=== PATIENT | female | born 1940 | race Caucasian/White ===

== ENCOUNTER 2017-03-31 10:34 | Emergency (ER) | payer MEDICARE, BC ==
[2017-03-31 11:37] VITALS: BP 134/59
--- NOTE | 2017-04-03 10:36 | ER ---
DATE SEEN: 03/31/2017 CHIEF COMPLAINT: Redness, left lower extremity. HISTORY OF PRESENT ILLNESS: This is a 76-year-old woman, who comes in with history of redness in left lower extremity. She was seen at 1050 hours, had onset of this redness noted today. She denies pain in legs. PAST MEDICAL HISTORY: Significant for, 1. Atrial fibrillation. 2. Anticoagulation with warfarin. 3. Spastic bladder. 4. Hypertension. 5. Dyslipidemia. 6. GERD. The patient notes that 2 weeks ago her scratched her lower extremity with his toenail and thought perhaps she might have infection in the left lower leg. This resulted in superficial laceration and she has surrounding redness, so she became concerned about potential infection. ALLERGIES: Tramadol. REVIEW OF SYSTEMS: HEENT: Has glaucoma, uses latanoprost. Otherwise negative. No sinusitis. No sore throat. CARDIORESPIRATORY: Denies chest pain, or irregular heartbeat present, but she has had irregular heartbeat in the past, treated with warfarin, had ablation, and pacemaker in place. Her cardiovascular status is stable. She is using warfarin as she has pacemaker in place. GASTROINTESTINAL: Denies abdominal pain. She has GERD. Denies blood in stool, black tarry stool, diarrhea, or constipation. GENITOURINARY: Denies frequency, urgency, or dysuria. MUSCULOSKELETAL: Denies arthritis or generalized muscle aches. NEUROLOGIC: Negative. MEDICATIONS: 1. Carvedilol 6.25 mg daily. 2. Flonase 1 spray daily. 3. Losartan 100 mg daily. 4. Latanoprost 1 drop daily each eye. 5. Atarax 10 mg daily. 6. Warfarin 2 mg daily. 7. Potassium chloride 10 mEq daily. 8. Oxybutynin 5 mg daily. 9. Atorvastatin 10 mg daily. 10.Amlodipine 5 mg daily. 11.Bumetanide 2 mg daily. 12.Protonix 40 mg daily. PHYSICAL EXAMINATION: VITAL SIGNS: Blood pressure 134/59, heart rate regular and 87, respirations 18, oxygen saturation 95% on room air, and temperature 36.7 degrees centigrade. BMI 13.7 kilos per meter squared. GENERAL: Alert woman, who is very pleasant demeanor. Looks younger than her age. HEENT: PERRLA intact. Pharynx without abnormality. NECK: No bruits. No masses in the neck. No thyromegaly. LUNGS: Clear to auscultation without rales, rhonchi, or wheezes. HEART: S1, S2. No murmur. No irregularity of rhythm. Pacemaker evident. ABDOMEN: Soft. No guarding. No abdominal discomfort. EXTREMITIES: Without edema. Left lower extremity, 15 cm x 8 cm area of erythema without induration left lateral gastroc region. No linear angiitis. No swelling of feet. No pedal edema. Dorsalis pedis intact. Capillary fill is normal. Deep tendon reflexes normal in upper and lower extremities. Cranial nerves 2 through 12 intact. Oriented x3. Gait appropriate without pain or limp. Romberg negative. ASSESSMENT: Probable cellulitis left lower extremity status post traumatic laceration caused 's toenail 2 weeks ago (while in bed). Superficial laceration healing. Surrounding 15-cm erythema. Mild increased warmth, induration, and tenderness. PLAN: Treat with antibiotics Keflex 500 mg t.i.d. Follow up with doctor in 10 to 14 days, earlier if worse. Use bacitracin to wound. DIAGNOSES: 1. Cellulitis, left lower extremity. 2. Diabetes. 3. Hypertension. 4. Pacemaker secondary to atrial fibrillation ablation. 5. Anticoagulation secondary to pacemaker placement. 6. Gastroesophageal reflux disease. 7. Bladder spasms. 8. Dyslipidemia. The patient was seen at 1050 hours. /[id number] MICKI/HOLLEY BENEDICT
== END 2017-03-31 11:35 | disposition home or self-care (01) ==
LOC: FB.ED 10:34
DX: L03.116 Cellulitis of left lower limb (principal); E11.9 Type 2 diabetes mellitus without complications; K21.9 Gastro-esophageal reflux disease without esophagitis; I10 Essential (primary) hypertension; E78.5 Hyperlipidemia, unspecified; I48.91 Unspecified atrial fibrillation; Z79.899 Other long term (current) drug therapy; Z79.01 Long term (current) use of anticoagulants
CPT/HCPCS: 99283

== ENCOUNTER 2021-02-16 19:28 | Emergency (ER) | payer MEDICARE, BC ==
[2021-02-16 20:07] VITALS: BP 132/56; PULSE 73
[2021-02-16] MEDS ORDERED: Acetaminophen/HYDROcodone 325-5 MG Tab PO ONE (20:09)
--- NOTE | 2021-02-16 20:11 | EDM.PDOC ---
ED HPI GENERAL MEDICAL PROBLEM - General Chief Complaint: Abdominal Pain Stated Complaint: PAIN Time Seen by Provider: 02/16/21 19:30 Source of Information: Reports: Patient, Family History Limitations: Reports: No Limitations - History of Present Illness INITIAL COMMENTS - FREE TEXT/NARRATIVE: Patient presented to the Ed because of a tender lump over the LLQ just above the groin. She was diagnosed with diverticulitis 1 week ago and took cipro and flagyl for 1 week. She reached at a cupboard at 5 pm tonight and felt the pain. she had a CT abd/pelvis done yesterday but she didn't get any call from the clinic. Left lower abd Pain Score (Numeric/FACES): 7 - Related Data Allergies Allergy/AdvReac Type Severity Reaction Status Date / Time tramadol Allergy Confusion Verified 02/15/21 09:51 Home Meds: Home Meds Bumetanide 2 mg PO DAILY 03/31/17 [History] Fluticasone Propionate [Flonase] 1 spray NS DAILY 03/31/17 [History] Latanoprost 1 drop EYEBOTH DAILY 03/31/17 [History] Losartan [Cozaar] 100 mg PO DAILY 03/31/17 [History] Oxybutynin [Oxybutynin ER] 5 mg PO DAILY 03/31/17 [History] Pantoprazole Sodium [Protonix] 40 mg PO 03/31/17 [History] Potassium Chloride 10 meq PO DAILY 03/31/17 [History] Warfarin Sodium [Jantoven] 2 mg PO DAILY 03/31/17 [History] amLODIPine [Norvasc] 5 mg PO DAILY 03/31/17 [History] atorvaSTATin [Lipitor] 10 mg PO BEDTIME 03/31/17 [History] carvediloL [Carvedilol] 6.25 mg PO DAILY 03/31/17 [History] cephALEXin [Keflex] 500 mg PO TID #30 capsule 03/31/17 [Rx] hydrOXYzine HCL [Atarax] 10 mg PO DAILY 03/31/17 [History] Acetaminophen/HYDROcodone [[place] 325-5 MG] 1 tab PO Q4H PRN #10 tab 02/16/21 [Rx] Past Medical History Cardiovascular History: Reports: High Cholesterol, Hypertension 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 History: Reports: Neurogenic Bladder Other 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 History: on oxybutinin 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: - Past Surgical History Cardiovascular Surgical History: Reports: Pacer Social & Family History - Tobacco Use Tobacco Use Status *Q: Never Tobacco User - Caffeine Use Caffeine Use: Reports: None ED ROS GENERAL - Review of Systems Review Of Systems: See Below Constitutional: Reports: No Symptoms HEENT: Reports: No Symptoms Respiratory: Reports: No Symptoms Cardiovascular: Reports: No Symptoms Endocrine: Reports: No Symptoms GI/Abdominal: Reports: No Symptoms : Reports: No Symptoms Musculoskeletal: Reports: No Symptoms Skin: Reports: No Symptoms Neurological: Reports: No Symptoms Psychiatric: Reports: No Symptoms Hematologic/Lymphatic: Reports: No Symptoms ED EXAM, GI/ABD - Physical Exam Exam: See Below Exam Limited By: No Limitations General Appearance: Alert, No Apparent Distress Ears: Normal External Exam, Normal Canal Nose: Normal Inspection, Normal Mucosa, No Blood Throat/Mouth: Normal Inspection, Normal Lips, Normal Teeth Head: Atraumatic, Normocephalic Neck: Normal Inspection, Supple, Non-Tender, Full Range of Motion Respiratory/Chest: No Respiratory Distress, Lungs Clear, Normal Breath Sounds, No Accessory Muscle Use, Chest Non-Tender Cardiovascular: Normal Peripheral Pulses, Regular Rate, Rhythm, No Edema, No Gallop GI/Abdominal Exam: Normal Bowel Sounds, Soft, No Organomegaly, No Distention, No Abnormal Bruit, Other (quarter size lump on LLQ) Back Exam: Normal Inspection, Full Range of Motion Extremities: Normal Inspection, Normal Range of Motion, Non-Tender Neurological: Alert, Oriented, CN II-XII Intact Course - Vital Signs Text/Narrative:: CT result was discussed with patient and her son. Last Recorded V/S: Last Vital Signs Temp 36.6 C 02/16/21 19:28 Pulse 73 02/16/21 19:28 Resp 17 02/16/21 19:28 BP 132/56 L 02/16/21 19:28 Pulse Ox 97 02/16/21 19:28 Departure - Departure Time of Disposition: 20:20 Disposition: Home, Self-Care 01 Condition: Good Clinical Impression: Abdominal hernia - Discharge Information Prescriptions: Acetaminophen/HYDROcodone [[place] 325-5 MG] 1 tab PO Q4H PRN #10 tab PRN Reason: Pain Instructions: Hernia, Adult, [id number] Forms: ED Department Discharge Additional Instructions: Please read discharge instructions on abdominal hernia Put an abdominal binder as directed Take norco/hydrocodone. 1 tablet every 4-6 hours as needed for pain Follow up as needed Sepsis Event Note (ED) - Evaluation Sepsis Screening Result: No Definite Risk
== END 2021-02-16 20:20 | disposition home or self-care (01) ==
LOC: FB.ED 19:28
DX: K46.9 Unspecified abdominal hernia without obstruction or gangrene (principal); E78.00 Pure hypercholesterolemia, unspecified; I10 Essential (primary) hypertension; Z79.01 Long term (current) use of anticoagulants; Z79.899 Other long term (current) drug therapy; Z88.5 Allergy status to narcotic agent
CPT/HCPCS: 99283; A9270

== ENCOUNTER 2021-03-07 06:50 | Day surgery (SDC) | payer MEDICARE, BC ==
[~2021-03-07 06:50] MED LIST: Lactated Ringers 1,000 ML IV SCH; Sodium Chloride 0.9% 10 ML Syringe FLUSH PRN
[2021-03-07] MEDS ORDERED: Propofol 200 MG/20 ML SDV IV ONE (06:51)
[2021-03-07] MEDS ORDERED: Lidocaine 1% PF 2 ML SDV INJECT ONE (06:51)
--- NOTE | 2021-03-07 08:00 | PCM.HPR ---
H & P Addendum review - H & P Addendum Review Date of Original H & P: 02/13/21 Date Reviewed: 03/07/21 Time Reviewed: 07:45 Patient was Examined: No Changes (LLQ pain has resolved)
--- NOTE | 2021-03-07 08:33 | PCM.OPNOTE ---
- General Post-Op/Procedure Note Date of Surgery/Procedure: 03/07/21 Operative Procedure(s): Colonoscopy with polypectomy Findings: 2 polyps Melanosis Coli Pre Op Diagnosis: Hx Colon Polyps Post-Op Diagnosis: Same Anesthesia Technique: MAC Primary Surgeon: Ruben Napoles Pathology: polyps Complications: None Condition: Good
--- NOTE | 2021-03-07 11:17 | OR ---
DATE OF OPERATION: 03/07/2021 SURGEON: Ruben Napoles MD PREOPERATIVE DIAGNOSES: 1. History of colon polyps. 2. Weight loss. 3. Recent abdominal pain, resolved. POSTOPERATIVE DIAGNOSES: 1. Colon polyps. 2. Melanosis coli. PROCEDURE: Colonoscopy with polypectomy x2. ANESTHESIA: IV sedation. DESCRIPTION OF PROCEDURE: The patient was brought to the procedure room, where she was placed on her left side and IV sedation administered. Digital rectal exam was performed, which was normal. Colonoscope was inserted and advanced to the level of the cecum with some difficulty getting through a tortuous colon. Cecum was identified by visualizing the appendiceal lumen and ileocecal valve. 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 Upon withdrawing the scope, I did find 2 polyps in the transverse colon. The largest one measures 10 mm in diameter and was removed with the cautery snare, broad-based stalk. The smaller 6 mm one was pedunculated and also removed with a snare. These were retrieved and sent as 1 specimen. The descending and sigmoid colon were normal. I did not see any diverticula, although some could have been behind folds. The rectum was normal and retroflexion was normal. Air was removed and the scope withdrawn. The patient tolerated the procedure well and returned to recovery in stable condition. The patient will follow up with Dr. Luevano in the near future for ongoing evaluation. She could consider another colonoscopy in 5 years if her health allows at that time. /[id number] VIKI/HOLELY
[2021-03-07 16:16] VITALS: BP 162/87; PULSE 72
== END 2021-03-07 09:35 | disposition home or self-care (01) ==
LOC: FB.SDS 06:50
PROVIDERS: ATTEND Surgery
DX: D12.3 Benign neoplasm of transverse colon (principal); K31.89 Other diseases of stomach and duodenum; K63.89 Other specified diseases of intestine; Z88.6 Allergy status to analgesic agent; Z86.010 Personal history of colon polyps
CPT/HCPCS: 00811; 45385; 88305; J2704; J7120

== ENCOUNTER 2021-04-13 04:41 | Emergency (ER) | payer MEDICARE, BC ==
[2021-04-13] MEDS ORDERED: Atropine/Diphenoxylate 0.025-2.5 MG Tab PO ONE (04:52)
--- NOTE | 2021-04-13 04:56 | EDM.PDOC ---
ED HPI GENERAL MEDICAL PROBLEM - General Stated Complaint: DIARRHEA Time Seen by Provider: 04/13/21 04:54 Source of Information: Reports: Patient History Limitations: Reports: No Limitations - History of Present Illness INITIAL COMMENTS - FREE TEXT/NARRATIVE: Marta complains of diarrhea x 4days,constant loose,green stools. No pain,fever or chills,and denies any vomiting. No recent abx use.Negative C scope in the last year or so.Earnest tried OTC Imodium with no relief. She comes in by ambulance. - Related Data Allergies Allergy/AdvReac Type Severity Reaction Status Date / Time tramadol Allergy Confusion Verified 02/15/21 09:51 Home Meds: Home Meds Bumetanide 2 mg PO DAILY 03/31/17 [History] Fluticasone Propionate [Flonase] 2 spray NS BEDTIME 03/31/17 [History] Latanoprost 1 drop EYEBOTH BEDTIME 03/31/17 [History] Losartan [Cozaar] 25 mg PO DAILY@1200 03/31/17 [History] Oxybutynin [Oxybutynin ER] 10 mg PO BEDTIME 03/31/17 [History] Potassium Chloride 20 meq PO DAILY 03/31/17 [History] atorvaSTATin [Lipitor] 10 mg PO BEDTIME 03/31/17 [History] carvediloL [Carvedilol] 6.25 mg PO BIDMEALS 03/31/17 [History] Acetaminophen/Codeine [Tylenol with Codeine No.3 300MG/30MG] 1 tab PO BEDTIME PRN 03/06/21 [History] Calcium Carbonate/Vitamin D3 [Calcium Carbonate/Vitamin D 600 MG-200 Unit] 2 tab PO DAILY 03/06/21 [History] Docusate Sodium [Colace] 100 mg PO DAILY 03/06/21 [History] Famotidine [Pepcid] 20 mg PO BEDTIME 03/06/21 [History] Multivitamin with Minerals [Multiple Vitamin] 1 tab PO DAILY 03/06/21 [History] allopurinoL [Zyloprim] 100 mg PO DAILY 03/06/21 [History] polyethylene glycoL 3350 [MiraLAX] 17 gm PO DAILY PRN 03/06/21 [History] Warfarin [Coumadin] 2 mg PO MOFR 04/13/21 [History] Warfarin [Coumadin] 4 mg PO SUTUWETHSA 04/13/21 [History] metroNIDAZOLE [Flagyl] 500 mg PO Q8H 10 Days #30 tab 04/13/21 [Rx] Past Medical History HEENT History: Reports: Cataract, Sinusitis Cardiovascular History: Reports: Afib, Heart Failure, High Cholesterol, Hypertension, Pacemaker Respiratory History: Reports: Other (See Below) Other Respiratory History: CHRONIC COUGH Gastrointestinal History: Reports: Chronic Constipation, GERD 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 History: Reports: Neurogenic Bladder, Urinary Incontinence Other 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 History: on oxybutinin 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 ED EXAM, GI/ABD - Physical Exam Exam: See Below Exam Limited By: No Limitations General Appearance: Alert, WD/WN Eyes: Bilateral: Normal Appearance, EOMI Throat/Mouth: Normal Inspection, Normal Lips, Normal Teeth, Normal Gums, Normal Oropharynx, Normal Voice, No Airway Compromise Head: Atraumatic, Normocephalic Respiratory/Chest: No Respiratory Distress, Lungs Clear, Normal Breath Sounds, No Accessory Muscle Use, Chest Non-Tender Cardiovascular: Normal Peripheral Pulses, Regular Rate, Rhythm, No Edema, No Gallop, No JVD, No Murmur, No Rub GI/Abdominal Exam: Normal Bowel Sounds, Soft, Non-Tender, No Organomegaly, No Distention, No Abnormal Bruit, No Mass, Pelvis Stable Course - Vital Signs Last Recorded V/S: Last Vital Signs Temp 98.4 F 04/13/21 04:50 Pulse 70 04/13/21 07:42 Resp 18 04/13/21 07:42 BP 107/54 L 04/13/21 07:42 Pulse Ox 96 04/13/21 07:42 - Orders/Labs/Meds Labs: Laboratory Tests 04/13/21 04/13/21 04/13/21 Range/Units 05:00 05:00 05:00 WBC 8.3 (3.0-10.3) x10-3/uL RBC 3.43 L (3.60-5.20) x10(6)uL Hgb 10.9 L (11.4-15.5) g/dL Hct 32.9 L (34.2-48.2) % MCV 95.7 (76.7-100.5) fL MCH 31.6 (23.9-33.9) pg MCHC 33.1 (31.9-34.8) g/dL RDW 13.5 (12.3-16.5) % Plt Count 142 L (151-488) x10(3)uL MPV 7.5 (7.1-12.4) fL Neut % (Auto) 74.5 (30.8-76.2) % Lymph % (Auto) 11.0 L (18.4-52.1) % Jewell % (Auto) 13.1 (4.4-15.7) % Eos % (Auto) 1.2 (0.6-8.1) % Baso % (Auto) 0.2 (0.2-1.5) % Neut # (Auto) 6.2 (1.5-6.3) x10-3/uL Lymph # (Auto) 0.9 L (1.0-4.4) x10-3/uL Jewell # (Auto) 1.1 H (0.3-1.0) x10-3/uL Eos # (Auto) 0.1 (0.0-0.8) x10-3/uL Baso # (Auto) 0.0 (0.0-0.1) x10-3/uL Sodium 136 (135-145) mmol/L Potassium 3.9 (3.5-5.3) mmol/L Chloride 98 L (100-110) mmol/L Carbon Dioxide 29 (21-32) mmol/L BUN 39 H (7-18) mg/dL Creatinine 1.2 H (0.55-1.02) mg/dL Est Cr Clr Drug Dosing TNP Estimated GFR (MDRD) 43 L (>60) BUN/Creatinine Ratio 32.5 H (9-20) Glucose 113 (80-116) mg/dL Calcium 8.8 (8.6-10.2) mg/dL C-Reactive Protein 13.3 H* (0.5-0.9) mg/dL Meds: Medications Discontinued Medications Generic Name Dose Route Start Last Admin Trade Name [place] PRN Reason Stop Dose Admin Diphenoxylate HCl/Atropine 2 tab 04/13/21 04:52 04/13/21 06:14 Atropine/Diphenoxylate 0.025-2.5 Mg Tab PO 04/13/21 04:53 2 tab ONETIME ONE Administration Sodium Chloride 1,000 mls @ 999 mls/hr 04/13/21 05:00 04/13/21 06:45 Normal Saline IV 999 mls/hr ASDIRECTED RANDELL Administration Sodium Chloride 1,000 mls @ 150 mls/hr 04/13/21 06:30 Normal Saline IV ASDIRECTED RANDELL Departure - Departure Time of Disposition: 19:11 Disposition: Home, Self-Care 01 Condition: Good Clinical Impression: C. difficile colitis - Discharge Information Prescriptions: metroNIDAZOLE [Flagyl] 500 mg PO Q8H 10 Days #30 tab Instructions: Clostridioides Difficile Infection Referrals: PCP,None [Primary Care Provider] - Forms: ED Department Discharge - Problem List & Annotations (1) C. difficile colitis SNOMED Code(s): 549688975 Code(s): A04.72 - ENTEROCOLITIS D/T CLOSTRIDIUM DIFFICILE, NOT SPCF RECUR Status: Acute - Problem List Review Problem List Initiated/Reviewed/Updated: Yes - Assessment/Plan Plan: 2 L NS. Flagyl.
[2021-04-13] MEDS: Sodium Chloride 0.9% 1,000 ML IV SCH ×2 (05:10→06:45)
[2021-04-13] MEDS ORDERED: Sodium Chloride 0.9% 1,000 ML IV SCH (06:30)
[2021-04-13 08:22] VITALS: BP 107/54; PULSE 70
== END 2021-04-13 07:42 | disposition home or self-care (01) ==
LOC: FB.ED 04:41
DX: A04.72 Enterocolitis due to Clostridium difficile, not specified as recurrent (principal); I11.0 Hypertensive heart disease with heart failure; I50.9 Heart failure, unspecified; I48.91 Unspecified atrial fibrillation; Z79.01 Long term (current) use of anticoagulants; E78.00 Pure hypercholesterolemia, unspecified; K21.9 Gastro-esophageal reflux disease without esophagitis; Z79.899 Other long term (current) drug therapy; Z88.5 Allergy status to narcotic agent
CPT/HCPCS: 36415; 80048; 85025; 86140; 87230; 99284; A9270-GY; J7030

== ENCOUNTER 2021-04-13 12:46 | Inpatient (IN) | payer MEDICARE, BC ==
[2021-04-13] MEDS ORDERED: Sodium Chloride 0.9% 10 ML Syringe FLUSH PRN (13:11)
--- NOTE | 2021-04-13 13:48 | EDM.PDOC ---
ED HPI GENERAL MEDICAL PROBLEM - General Stated Complaint: UNRESPONSIVE Time Seen by Provider: 04/13/21 13:00 Source of Information: Reports: Patient, Family History Limitations: Reports: No Limitations - History of Present Illness INITIAL COMMENTS - FREE TEXT/NARRATIVE: Patient is a 80 YO WF who presented to the ED because of altered LOC-she was unresponsive, disoriented, and confused hours after she was discharged from the ED this morning. She was seen in the ED because of 4 day history of diarrhea, diagnosed with gastroenteritis, C. dif colitis, dehydration and CANDY. She had 2 L of NS in the ED and was discharged to home with flagyl. She c/o chills but no fever, have been having dry cough. There is no urinary symptoms. - Related Data Allergies Allergy/AdvReac Type Severity Reaction Status Date / Time tramadol Allergy Confusion Verified 02/15/21 09:51 Home Meds: Home Meds Bumetanide 2 mg PO BID 03/31/17 [History] Fluticasone Propionate [Flonase] 2 spray NS DAILY 03/31/17 [History] Latanoprost 1 drop EYEBOTH DAILY 03/31/17 [History] Losartan [Cozaar] 25 mg PO DAILY PRN 03/31/17 [History] Oxybutynin [Oxybutynin ER] 10 mg PO DAILY 03/31/17 [History] Potassium Chloride 20 meq PO BID 03/31/17 [History] atorvaSTATin [Lipitor] 10 mg PO BEDTIME 03/31/17 [History] carvediloL [Carvedilol] 6.25 mg PO BIDMEALS 03/31/17 [History] Acetaminophen/Codeine [Tylenol with Codeine No.3 300MG/30MG] 1 tab PO BEDTIME 03/06/21 [History] Calcium Carbonate/Vitamin D3 [Calcium Carbonate/Vitamin D 600 MG-200 Unit] 2 tab PO DAILY 03/06/21 [History] Cholecalciferol (Vitamin D3) [Vitamin D3] 125 mcg PO DAILY 03/06/21 [History] Docusate Sodium [Colace] 100 mg PO DAILY 03/06/21 [History] Famotidine [Pepcid] 20 mg PO BEDTIME 03/06/21 [History] Fexofenadine [Patricia] 180 mg PO DAILY 03/06/21 [History] Multivitamin with Minerals [Multiple Vitamin] 1 tab PO DAILY 03/06/21 [History] allopurinoL [Zyloprim] 100 mg PO DAILY 03/06/21 [History] polyethylene glycoL 3350 [MiraLAX] 17 gm PO DAILY PRN 03/06/21 [History] metroNIDAZOLE [Flagyl] 500 mg PO Q8H 10 Days #30 tab 04/13/21 [Rx] Past Medical History HEENT History: Reports: Cataract, Sinusitis Cardiovascular History: Reports: Afib, Heart Failure, High Cholesterol, Hypertension, Pacemaker Respiratory History: Reports: Other (See Below) Other Respiratory History: CHRONIC COUGH Gastrointestinal History: Reports: Chronic Constipation, GERD 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 History: Reports: Neurogenic Bladder, Urinary Incontinence Other 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 History: on oxybutinin 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: Musculoskeletal History: Reports: Fracture, Gout Neurological History: Reports: TIA Hematologic History: Reports: Anticoagulation Therapy Dermatologic History: Reports: None - Infectious Disease History Infectious Disease History: Reports: C-Difficile - Past Surgical History HEENT Surgical History: Reports: Cataract Surgery Cardiovascular Surgical History: Reports: Pacer GI Surgical History: Reports: Colonoscopy Musculoskeletal Surgical History: Reports: ORIF Social & Family History - Caffeine Use Caffeine Use: Reports: None ED ROS GENERAL - Review of Systems Review Of Systems: See Below Constitutional: Reports: Chills HEENT: Reports: No Symptoms Respiratory: Reports: Cough Cardiovascular: Reports: No Symptoms Endocrine: Reports: No Symptoms GI/Abdominal: Reports: Diarrhea : Reports: No Symptoms Musculoskeletal: Reports: No Symptoms Skin: Reports: No Symptoms Neurological: Reports: Confusion Psychiatric: Reports: No Symptoms Hematologic/Lymphatic: Reports: No Symptoms ED EXAM, GENERAL - Physical Exam Exam: See Below Exam Limited By: Altered Mental Status General Appearance: Other (disoriented and confused) Eye Exam: Bilateral Eye: PERRL Ears: Normal External Exam, Normal Canal Nose: Normal Inspection, Normal Mucosa, No Blood Throat/Mouth: Normal Inspection, Normal Lips, Normal Teeth Head: Atraumatic, Normocephalic Neck: Normal Inspection, Supple, Non-Tender, Full Range of Motion Respiratory/Chest: No Respiratory Distress, Lungs Clear, Normal Breath Sounds, No Accessory Muscle Use, Chest Non-Tender Cardiovascular: Normal Peripheral Pulses, Regular Rate, Rhythm, No Edema, No Gallop, No JVD, No Murmur, No Rub GI/Abdominal: Non-Tender, Other (hyperactibe bowel sound) Back Exam: Normal Inspection, Full Range of Motion Extremities: Normal Inspection, Normal Range of Motion, Non-Tender Neurological: No Motor/Sensory Deficits, Disoriented, Other (confused) Psychiatric: Normal Affect Skin Exam: Warm, Dry Course - Vital Signs Text/Narrative:: Lab/CXR/Headt CT result was reviewed and discussed with patient and her stepson NS @ 125 ml/hr Flagyl 500 mg IV x1 Covid-negative Code Status: Full Code Last Recorded V/S: Last Vital Signs Temp 38.8 C H 04/13/21 12:47 Pulse 73 04/13/21 12:47 Resp 20 04/13/21 12:47 BP 115/68 04/13/21 12:47 Pulse Ox 93 L 04/13/21 12:47 - Orders/Labs/Meds Orders: Active Orders 24 hr Category Date Time Status Patient Status Manage Transfer [TRANSFER] Routine ADT 04/13/21 15:18 Ordered Chest 1V Frontal [CR] Stat Exams 04/13/21 13:11 Ordered UA W/MICROSCOPIC [URIN] Stat Lab 04/13/21 14:57 Received Sodium Chloride 0.9% [Normal Saline] 1,000 ml Med 04/13/21 13:15 Active IV ASDIRECTED Sodium Chloride 0.9% [Saline Flush] Med 04/13/21 13:11 Active 10 ml FLUSH ASDIRECTED PRN metroNIDAZOLE/Normal Saline [Flagyl in NS 500 MG/100 ML Med 04/13/21 15:02 Active ] 500 mg Premix Bag 1 bag IV ONETIME Saline Lock Insert [OM.PC] Routine Oth 04/13/21 13:11 Ordered Medication Orders Sodium Chloride (Normal Saline) 1,000 mls @ 125 mls/hr IV ASDIRECTED RANDELL Last Admin: 04/13/21 13:57 Dose: 125 mls/hr Documented by: CASS Metronidazole 500 mg/ Premix 100 mls @ 100 mls/hr IV ONETIME ONE Stop: 04/13/21 16:01 Sodium Chloride (Sodium Chloride 0.9% 10 Ml Syringe) 10 ml FLUSH ASDIRECTED PRN PRN Reason: Keep Vein Open Labs: Laboratory Tests 04/13/21 04/13/21 04/13/21 Range/Units 13:25 13:25 14:04 Sodium 138 (135-145) mmol/L Potassium 3.7 (3.5-5.3) mmol/L Chloride 102 (100-110) mmol/L Carbon Dioxide 27 (21-32) mmol/L BUN 33 H (7-18) mg/dL Creatinine 1.2 H (0.55-1.02) mg/dL Est Cr Clr Drug Dosing TNP Estimated GFR (MDRD) 43 L (>60) BUN/Creatinine Ratio 27.5 H (9-20) Glucose 116 (80-116) mg/dL Lactic Acid 0.8 (0.4-2.0) mmol/L Calcium 8.1 L (8.6-10.2) mg/dL Total Bilirubin 2.4 H (0.1-1.3) mg/dL AST 14 (5-25) IU/L ALT 14 (12-36) U/L Alkaline Phosphatase 36 L (56-112) IU/L Total Protein 5.6 L (6.0-8.0) g/dL Albumin 2.8 L (3.2-4.6) g/dL Globulin 2.8 g/dL Albumin/Globulin Ratio 1.0 SARS-CoV-2 RNA (YUNIOR) Negative (NEGATIVE) Meds: Medications Generic Name Dose Route Start Last Admin Trade Name Freq PRN Reason Stop Dose Admin Sodium Chloride 1,000 mls @ 125 mls/hr 04/13/21 13:15 04/13/21 13:57 Normal Saline IV 125 mls/hr ASDIRECTED RANDELL Administration Metronidazole 500 mg/ Premix 100 mls @ 100 mls/hr 04/13/21 15:02 IV 04/13/21 16:01 ONETIME ONE Sodium Chloride 10 ml 04/13/21 13:11 Sodium Chloride 0.9% 10 Ml Syringe FLUSH ASDIRECTED PRN Keep Vein Open Departure - Departure Time of Disposition: 15:00 Disposition: Admitted As Inpatient 67 Condition: Good Clinical Impression: Dehydration, CANDY (acute kidney injury), C. difficile colitis, Encephalopathy - Discharge Information Referrals: PCP,None [Primary Care Provider] - Sepsis Event Note (ED) - Focused Exam Vital Signs: Vital Signs Temp Pulse Resp BP Pulse Ox 04/13/21 12:47 38.8 C H 73 20 115/68 93 L - My Orders Last 24 Hours: My Active Orders 04/13/21 13:11 Chest 1V Frontal [CR] Stat Sodium Chloride 0.9% [Saline Flush] 10 ml FLUSH ASDIRECTED PRN Saline Lock Insert [OM.PC] Routine 04/13/21 13:15 Sodium Chloride 0.9% [Normal Saline] 1,000 ml IV ASDIRECTED 04/13/21 14:57 UA W/MICROSCOPIC [URIN] Stat 04/13/21 15:02 metroNIDAZOLE/Normal Saline [Flagyl in NS 500 MG/100 ML] 500 mg Premix Bag 1 bag IV ONETIME 04/13/21 15:18 Patient Status Manage Transfer [TRANSFER] Routine - Assessment/Plan Last 24 Hours: My Active Orders 04/13/21 13:11 Chest 1V Frontal [CR] Stat Sodium Chloride 0.9% [Saline Flush] 10 ml FLUSH ASDIRECTED PRN Saline Lock Insert [OM.PC] Routine 04/13/21 13:15 Sodium Chloride 0.9% [Normal Saline] 1,000 ml IV ASDIRECTED 04/13/21 14:57 UA W/MICROSCOPIC [URIN] Stat 04/13/21 15:02 metroNIDAZOLE/Normal Saline [Flagyl in NS 500 MG/100 ML] 500 mg Premix Bag 1 bag IV ONETIME 04/13/21 15:18 Patient Status Manage Transfer [TRANSFER] Routine
[2021-04-13] MEDS: Sodium Chloride 0.9% 1,000 ML IV SCH (13:57)
--- NOTE | 2021-04-13 14:29 | CT ---
INDICATION: Altered level of consciousness/confusion. CT HEAD WITHOUT CONTRAST: Spiral 3.75 mm axial sections were obtained through the brain without contrast 04/13/21 with axial, sagittal, and coronal reconstructions - no comparisons. Total exam DLP was 1219.22 milligray-cm. The left maxillary antrum is opacified as is a left frontal air cell. This could be on the basis of sinusitis but should be correlated clinically. The paranasal sinuses and mastoid air cells were otherwise well aerated. The orbits appear to be intact. No definite cranial abnormality was identified. There appears to be some calcification in the internal carotid arteries. There is some low-density abnormality in the white matter in the frontoparietal and parietal area which may be on the basis of mild microvascular disease. No bleeding site or hematoma was seen - no definite acute intracranial abnormality was seen. IMPRESSION: 1. Probable cerebrovascular disease with minimal microvascular disease type changes in the right frontoparietal and parietal area. 2. Opacified left frontal and left maxillary sinuses, etiology indeterminate - correlate clinically. Report was called to Dr. Ceron at 1405 hours 04/13/21. [facility]
[2021-04-13] MEDS ORDERED: metroNIDAZOLE/Normal Saline 500 MG in Premix Bag 1 BAG IV ONE (15:02)
[2021-04-13] MEDS ORDERED: Warfarin Sliding Scale PO SCH (17:15)
[2021-04-13] MEDS ORDERED: Acetaminophen/Codeine 300-30 MG Tab PO PRN (17:54)
[2021-04-13] MEDS ORDERED: Losartan 25 MG Tab PO PRN (17:54)
[2021-04-13] MEDS: Carvedilol 6.25 MG Tab PO SCH (18:24)
[2021-04-13] MEDS: Vancomycin 125 MG Cap PO SCH ×2 (18:24→21:51)
--- NOTE | 2021-04-13 18:48 | PCM.HP.2 ---
H&P History of Present Illness - General Date of Service: 04/13/21 Admit Problem/Dx: Admission Diagnosis/Problem Admission Diagnosis/Problem Clostridium difficile enterocolitis Source of Information: Patient, Family, Provider - History of Present Illness Initial Comments - Free Text/Narative: Marta present to ER this morning with 4 day history of perfuse watery diarrhea, was diagnosed with C. Difficile colitis and given IVF, Flagyl and sent home. She returned this afternoon after family found her unresponsive, confused. She denies any fevers, has been chilled. No cough, sore throat, shortness of breath, nausea, vomiting, abdominal pain. She stated her urine was dark in color, burned but no frequency/hematuria. She received IVF in ER and 2nd dose of Flagyl and became more alert per her son and is back to her normal at time of my exam. CT head was negative. CXR negative. Dr Ceron did not repeat her WBC this afternoon but repeated chemistry which BUN/CR was unchanged 33/1.2. Neuroexam w as negative. Covid negative. Urine was collected by straight cath. She was on antibiotics about 2 months ago. - Related Data Allergies/Adverse Reactions: Allergies Allergy/AdvReac Type Severity Reaction Status Date / Time tramadol Allergy Confusion Verified 02/15/21 09:51 Home Medications: Home Meds Bumetanide 2 mg PO DAILY 03/31/17 [History] Fluticasone Propionate [Flonase] 2 spray NS DAILY 03/31/17 [History] Latanoprost 1 drop EYEBOTH BEDTIME 03/31/17 [History] Losartan [Cozaar] 25 mg PO DAILY PRN 03/31/17 [History] Oxybutynin [Oxybutynin ER] 10 mg PO BEDTIME 03/31/17 [History] Potassium Chloride 20 meq PO DAILY 03/31/17 [History] atorvaSTATin [Lipitor] 10 mg PO BEDTIME 03/31/17 [History] carvediloL [Carvedilol] 6.25 mg PO BIDMEALS 03/31/17 [History] Acetaminophen/Codeine [Tylenol with Codeine No.3 300MG/30MG] 1 tab PO BEDTIME PRN 03/06/21 [History] Calcium Carbonate/Vitamin D3 [Calcium Carbonate/Vitamin D 600 MG-200 Unit] 2 tab PO DAILY 03/06/21 [History] Docusate Sodium [Colace] 100 mg PO DAILY 03/06/21 [History] Famotidine [Pepcid] 20 mg PO BEDTIME 03/06/21 [History] Multivitamin with Minerals [Multiple Vitamin] 1 tab PO DAILY 03/06/21 [History] allopurinoL [Zyloprim] 100 mg PO DAILY 03/06/21 [History] polyethylene glycoL 3350 [MiraLAX] 17 gm PO DAILY PRN 03/06/21 [History] Warfarin [Coumadin] 2 mg PO MOFR 04/13/21 [History] Warfarin [Coumadin] 4 mg PO SUTUWETHSA 04/13/21 [History] metroNIDAZOLE [Flagyl] 500 mg PO Q8H 10 Days #30 tab 04/13/21 [Rx] Past Medical History HEENT History: Reports: Cataract, Sinusitis Cardiovascular History: Reports: Afib, Heart Failure, High Cholesterol, Hypertension, Pacemaker Respiratory History: Reports: Other (See Below) Other Respiratory History: CHRONIC COUGH Gastrointestinal History: Reports: Chronic Constipation, GERD 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 History: Reports: Neurogenic Bladder, Urinary Incontinence Other 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 History: 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: Musculoskeletal History: Reports: Fracture, Gout Neurological History: Reports: TIA Hematologic History: Reports: Anticoagulation Therapy Dermatologic History: Reports: None - Infectious Disease History Infectious Disease History: Reports: C-Difficile - Past Surgical History HEENT Surgical History: Reports: Cataract Surgery Cardiovascular Surgical History: Reports: Pacer GI Surgical History: Reports: Colonoscopy Musculoskeletal Surgical History: Reports: ORIF Social & Family History - Family History Family Medical History: No Pertinent Family History - Tobacco Use Tobacco Use Status *Q: Never Tobacco User - Caffeine Use Caffeine Use: Reports: None - Alcohol Use Days Per Week of Alcohol Use: 7 Number of Drinks Per Day: 1 Total Drinks Per Week: 7 - Recreational Drug Use Recreational Drug Use: No H&P Review of Systems - Review of Systems: Review Of Systems: Comprehensive ROS is negative, except as noted in HPI. Exam - Exam Exam: See Below - Vital Signs Vital Signs: Last Vital Signs Temp 101.8 F H 04/13/21 12:47 Pulse 70 04/13/21 18:24 Resp 20 04/13/21 12:47 BP 102/50 L 04/13/21 18:24 Pulse Ox 93 L 04/13/21 12:47 Weight: 148 lb 5 oz - Exam General: Alert, Oriented, Cooperative. No: Mild Distress HEENT: PERRLA, Conjunctiva Clear, EOMI, Hearing Intact. No: Mucosa Moist & [place] Neck: Trachea Midline Lungs: Clear to Auscultation, Normal Respiratory Effort Cardiovascular: Regular Rate, Regular Rhythm, Diastolic Murmur (tricuspid/mitral) GI/Abdominal Exam: Soft, No Distention, Guarding, Tender, Abnormal Bowel Sounds (hyperactive x 4) (Female) Exam: Deferred Rectal (Female) Exam: Deferred Extremities: No Pedal Edema, Normal Capillary Refill Peripheral Pulses: 2+: Radial (L), Radial (R), Dorsalis Pedis (L), Dorsalis Pedis (R) Skin: Warm, Dry, Intact, Ecchymosis (right upper arm, bilateral knees) Neurological: Cranial Nerves Intact, Normal Speech, Normal Tone - Patient Data Lab Results Last 24 hrs: Laboratory Results - last 24 hr 04/13/21 04/13/21 04/13/21 Range/Units 05:00 13:25 13:25 PT 32.3 H (9.0-11.1) sec INR 3.23 H (1.00-1.24) Sodium 138 (135-145) mmol/L Potassium 3.7 (3.5-5.3) mmol/L Chloride 102 (100-110) mmol/L Carbon Dioxide 27 (21-32) mmol/L BUN 33 H (7-18) mg/dL Creatinine 1.2 H (0.55-1.02) mg/dL Est Cr Clr Drug Dosing TNP Estimated GFR (MDRD) 43 L (>60) BUN/Creatinine Ratio 27.5 H (9-20) Glucose 116 (80-116) mg/dL Lactic Acid 0.8 (0.4-2.0) mmol/L Calcium 8.1 L (8.6-10.2) mg/dL Total Bilirubin 2.4 H (0.1-1.3) mg/dL AST 14 (5-25) IU/L ALT 14 (12-36) U/L Alkaline Phosphatase 36 L (56-112) IU/L Total Protein 5.6 L (6.0-8.0) g/dL Albumin 2.8 L (3.2-4.6) g/dL Globulin 2.8 g/dL Albumin/Globulin Ratio 1.0 Urine Color (YELLOW) Urine Appearance (CLEAR) Urine pH (5.0-6.5) Ur Specific [place] (1.010-1.025) Urine Protein (NEGATIVE) mg/dL Urine Glucose (UA) (NORMAL) mg/dL Urine Ketones (NEGATIVE) mg/dL Urine Occult Blood (NEGATIVE) Urine Nitrite (NEGATIVE) Urine Bilirubin (NEGATIVE) Urine Urobilinogen (NEGATIVE) mg/dL Ur Leukocyte Esterase (NEGATIVE) Urine RBC (0-5) Urine WBC (0-5) Ur Squamous Epith Cells (NS,R,O) Urine Bacteria (NS) SARS-CoV-2 RNA (YUNIOR) (NEGATIVE) 04/13/21 04/13/21 Range/Units 14:04 14:57 PT (9.0-11.1) sec INR (1.00-1.24) Sodium (135-145) mmol/L Potassium (3.5-5.3) mmol/L Chloride (100-110) mmol/L Carbon Dioxide (21-32) mmol/L BUN (7-18) mg/dL Creatinine (0.55-1.02) mg/dL Est Cr Clr Drug Dosing Estimated GFR (MDRD) (>60) BUN/Creatinine Ratio (9-20) Glucose (80-116) mg/dL Lactic Acid (0.4-2.0) mmol/L Calcium (8.6-10.2) mg/dL Total Bilirubin (0.1-1.3) mg/dL AST (5-25) IU/L ALT (12-36) U/L Alkaline Phosphatase (56-112) IU/L Total Protein (6.0-8.0) g/dL Albumin (3.2-4.6) g/dL Globulin g/dL Albumin/Globulin Ratio Urine Color Yellow (YELLOW) Urine Appearance Clear (CLEAR) Urine pH 5.0 (5.0-6.5) Ur Specific [place] 1.015 (1.010-1.025) Urine Protein Negative (NEGATIVE) mg/dL Urine Glucose (UA) Normal (NORMAL) mg/dL Urine Ketones Negative (NEGATIVE) mg/dL Urine Occult Blood Negative (NEGATIVE) Urine Nitrite Negative (NEGATIVE) Urine Bilirubin Negative (NEGATIVE) Urine Urobilinogen Normal (NEGATIVE) mg/dL Ur Leukocyte Esterase Negative (NEGATIVE) Urine RBC 0-5 (0-5) Urine WBC 0-5 (0-5) Ur Squamous Epith Cells Few H (NS,R,O) Urine Bacteria Few H (NS) SARS-CoV-2 RNA (YUNIOR) Negative (NEGATIVE) Result Diagrams: 04/13/21 13:25 Sepsis Event Note - Evaluation Sepsis Screening Result: No Definite Risk - Focused Exam Vital Signs: Vital Signs Temp Pulse Pulse Resp BP BP Pulse Ox 04/13/21 18:24 70 102/50 L 04/13/21 12:47 101.8 F H 73 20 115/68 93 L *Q Meaningful Use (ADM) - VTE *Q VTE Pharmacological Contraindications *Q: High INR Value - VTE Risk Assess *Q Each Risk Factor Represents 1 Point: None Total Score 1 Point Risk Factors: 0 Each Risk Factor Represents 2 Points: None Total Score 2 Point Risk Factors: 0 Each Risk Factor Represents 3 Points: Age 75 Years or Greater Total Score 3 Point Risk Factors: 3 Each Risk Factor Represents 5 Points: None Total Score 5 Point Risk Factors: 0 Venous Thromboembolism Risk Factor Score *Q: 3 - Problem List (1) C. difficile colitis SNOMED Code(s): 379310267 ICD Code: A04.72 - ENTEROCOLITIS D/T CLOSTRIDIUM DIFFICILE, NOT SPCF RECUR Status: Acute Current Visit: Yes (2) CANDY (acute kidney injury) SNOMED Code(s): 71137019, 51295584 ICD Code: N17.9 - ACUTE KIDNEY FAILURE, UNSPECIFIED Status: Acute Current Visit: Yes (3) Dehydration SNOMED Code(s): 15525500 ICD Code: E86.0 - DEHYDRATION Status: Acute Current Visit: Yes (4) Atrial fibrillation SNOMED Code(s): 07713528 ICD Code: I48.91 - UNSPECIFIED ATRIAL FIBRILLATION Status: Chronic Current Visit: Yes (5) Anticoagulant long-term use SNOMED Code(s): 449110421 ICD Code: Z79.01 - JAIL (CURRENT) USE OF ANTICOAGULANTS Status: Chronic Current Visit: Yes Problem List Initiated/Reviewed/Updated: Yes Orders Last 24hrs: Active Orders 24 hr Category Date Time Status Patient Status [ADT] Routine ADT 04/13/21 17:50 Active Oxygen Therapy [RC] PRN Care 04/13/21 17:50 Active Up With Assistance [RC] ASDIRECTED Care 04/13/21 17:50 Active Up ad Odalys [RC] ASDIRECTED Care 04/13/21 17:50 Active VTE/DVT Education [RC] Per Unit Routine Care 04/13/21 17:50 Active Vital Signs [RC] Q4H Care 04/13/21 17:50 Active Regular Diet [DIET] Diet 04/13/21 Dinner Active Chest 1V Frontal [CR] Stat Exams 04/13/21 13:11 Taken Acetaminophen/Codeine [Tylenol with Codeine No.3 300MG/ Med 04/13/21 17:54 Active 30MG] 1 tab PO BEDTIME PRN Famotidine [Pepcid] Med 04/13/21 21:00 Active 20 mg PO BEDTIME Fluticasone Propionate [Flonase] Med 04/14/21 09:00 Active 0 gm NASBOTH DAILY Latanoprost [Xalatan 0.005% Ophth Soln] Med 04/13/21 21:00 Active 0 ml EYEBOTH BEDTIME Losartan [Cozaar] Med 04/13/21 17:54 Active 25 mg PO DAILY PRN Multivitamins [Tab-A-Ayaz] Med 04/14/21 09:00 Active 1 tab PO DAILY Oxybutynin [Oxybutynin ER] Med 04/13/21 21:00 Active 10 mg PO BEDTIME Potassium Chloride [Klor-Con M20] Med 04/14/21 09:00 Active 20 meq PO DAILY Sodium Chloride 0.9% [Normal Saline] 1,000 ml Med 04/13/21 13:15 Active IV ASDIRECTED Sodium Chloride 0.9% [Saline Flush] Med 04/13/21 13:11 Active 10 ml FLUSH ASDIRECTED PRN Vancomycin [Vancocin 125 MG Capsule] Med 04/13/21 17:00 Active 125 mg PO QID Warfarin Sliding Scale [Coumadin Sliding Scale] Med 04/13/21 17:15 Pending 1 each PO ASDIRECTED allopurinoL [Zyloprim] Med 04/14/21 09:00 Active 100 mg PO DAILY atorvaSTATin [Lipitor] Med 04/13/21 21:00 Active 10 mg PO BEDTIME carvediloL [Coreg] Med 04/13/21 18:00 Active 6.25 mg PO BIDMEALS Antiembolic Hose [OM.PC] Per Unit Routine Oth 04/13/21 17:53 Ordered Resuscitation Status Routine Resus Stat 04/13/21 17:50 Ordered Medication Orders Acetaminophen/Codeine Phosphate (Acetaminophen/Codeine 300-30 Mg Tab) 1 tab PO BEDTIME PRN PRN Reason: Pain Allopurinol (Allopurinol 100 Mg Tab) 100 mg PO DAILY [facility] Atorvastatin Calcium (Atorvastatin 10 Mg Tab) 10 mg PO BEDTIME [facility] Carvedilol (Carvedilol 6.25 Mg Tab) 6.25 mg PO BIDMEALS [facility] Last Admin: 04/13/21 18:24 Dose: 6.25 mg Documented by: CEE Famotidine (Famotidine 20 Mg Tab) 20 mg PO BEDTIME [facility] Fluticasone Propionate (Fluticasone Propionate Nasal [place] 16 Gm Bottle) 0 gm NASBOTH DAILY [facility] Sodium Chloride (Normal Saline) 1,000 mls @ 125 mls/hr IV ASDIRECTED [facility] Last Admin: 04/13/21 13:57 Dose: 125 mls/hr Documented by: CASS Latanoprost (Latanoprost 0.005% Ophth Soln 2.5 Ml Bottle) 0 ml EYEBOTH BEDTIME [facility] Losartan Potassium (Losartan 25 Mg Tab) 25 mg PO DAILY PRN PRN Reason: Hypertension Multivitamins/Minerals/Vitamin C (Multivitamin Tab) 1 tab PO DAILY [facility] Oxybutynin Chloride (Oxybutynin 5 Mg Tab.Er) 10 mg PO BEDTIME [facility] Potassium Chloride (Potassium Chloride 20 Meq Tab.Er) 20 meq PO DAILY [facility] Sodium Chloride (Sodium Chloride 0.9% 10 Ml Syringe) 10 ml FLUSH ASDIRECTED PRN PRN Reason: Keep Vein Open Vancomycin HCl (Vancomycin 125 Mg Cap) 125 mg PO QID [facility] Last Admin: 04/13/21 18:24 Dose: 125 mg Documented by: CEE Warfarin Sodium (Warfarin Sliding Scale) 1 each PO ASDIRECTED [facility] Assessment/Plan Comment:: 1. Admit for inpatient care for C. difficile colitis, Dehydration, CANDY. 2. C. Diff Colitis: Vancomycin 125 mg qid x 10 days. NS at 125 ml/hr. Repeat BMP tomorrow. Isolation precautions. 3. Dehydration/CANDY: Cr 1.2, BUN 33, ratio 27.5. NS at 125 ml/hr. 4. Atrial fibrillation/pacemaker: INR 3.23. Coumadin adjust per pharmacy. INR tomorrow. 5. Diet: regular, on Coumadin. 6. Activity: as tolerated. 7. DVT prophylaxis: on Coumadin. 8. CODE STATUS: FULL. 9. Discharge planning: anticipate 48-72 hours of IVF until her diarrhea slows down. - Mortality Measure Prognosis:: Good
[2021-04-13] MEDS ORDERED: Warfarin 2 MG Tab PO ONE (20:00)
[2021-04-13] MEDS ORDERED: Latanoprost 0.005% Ophth Soln 2.5 ML Bottle EYEBOTH SCH (21:00)
[2021-04-13] MEDS ORDERED: Acetaminophen 325 MG Tab PO PRN ×2 (21:30→22:04)
[2021-04-13] MEDS: atorvaSTATin 10 MG Tab ONE ×2 (21:45→21:52)
[2021-04-13] MEDS: atorvaSTATin 10 MG Tab PO SCH (21:50)
[2021-04-13] MEDS: Famotidine 20 MG Tab PO SCH (21:54)
[2021-04-13] MEDS: Oxybutynin 5 MG Tab.ER PO SCH (21:54)
[2021-04-14] MEDS: Sodium Chloride 0.9% 1,000 ML IV SCH ×3 (02:06→20:28)
--- NOTE | 2021-04-14 06:39 | CR ---
CHEST: A single AP upright portable view of the chest was obtained 04/13/21 - no comparisons. The heart is enlarged with bipolar pacemaker leads, the ventricular lead tip is in the area of the apex of the right ventricle. The aorta is tortuous with calcification in the arch. A definite active infiltrate or effusion was not identified. Overlying snaps are noted. IMPRESSION: 1. No definite acute process. 2. 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 Report was called to Dr. Ceron at 1405 hours 04/13/21. [facility]
[2021-04-14] MEDS: Carvedilol 6.25 MG Tab PO SCH ×2 (08:24→18:12)
[2021-04-14] MEDS: Potassium Chloride 20 MEQ Tab.ER PO SCH (08:52)
[2021-04-14] MEDS: Multivitamin Tab PO SCH (08:53)
[2021-04-14] MEDS: Allopurinol 100 MG Tab PO SCH (08:53)
[2021-04-14] MEDS: Vancomycin 125 MG Cap PO SCH ×4 (08:54→20:26)
[2021-04-14] MEDS ORDERED: Fluticasone Propionate Nasal Spray 16 GM Bottle NASBOTH SCH (09:00)
[2021-04-14] MEDS: Calcium Gluconate 10% 1 GM/10 ML SDV IVPUSH SCH ×3 (11:52→22:19)
[2021-04-14] MEDS ORDERED: Losartan 25 MG Tab PO SCH (12:00)
--- NOTE | 2021-04-14 12:12 | PN ---
DATE SEEN: 04/14/2021 HISTORY: Marta is a 80-year-old woman with a history of a cardiac pacemaker, hypertension, chronic atrial fibrillation with anticoagulation, CHF, and history of gout. Marta developed spontaneous onset of diarrhea approximately 3 days ago. She was seen and given IV fluid and sent home. She subsequently got very weak and passed, only came back to the emergency room where she was evaluated and was admitted. C difficile test was positive and she was started on IV metronidazole. This was switched to p.o. vancomycin yesterday. This morning, she is comfortable. She is still having profuse watery diarrhea with abdominal cramping. She is not currently having fever or chills, and her temperature has remained normal overnight. PHYSICAL EXAMINATION: VITAL SIGNS: Blood pressure 108/46, pulse 72 and regular, respirations normal, O2 saturation 100% on room air. SKIN: Clear without rash. MOUTH: Dry. LUNGS: Clear to the bases. HEART: Regular without murmur or gallop. ABDOMEN: Soft, normal bowel sounds. Nontender. EXTREMITIES: Show no edema at the ankles. LABORATORY DATA: INR 5.61. Potassium 3.1, BUN 28, creatinine 1.0, calcium down to 6.4. Urinalysis negative. COVID negative. ASSESSMENT: 1. Clostridium difficile diarrhea, spontaneous onset with dehydration, weakness, and syncope. 2. Chronic atrial fibrillation with pacemaker and chronic congestive heart failure, on anticoagulation. Elevated INR at this time. 3. Permanent pacemaker. 4. History of hyperlipidemia. 5. History of gout. 6. Hypertension. 7. Glaucoma. PLAN: Her warfarin is being held because of her high INR. We will continue p.o. vancomycin and IV fluids. We will also replace her calcium both IV and orally, and recheck her calcium and magnesium later today. Plan an additional 48 to 72 hours of acute hospitalization followed by return to home when able. /[id number] MATEUSZ/THOMASL
[2021-04-14] MEDS: Calcium Carbonate 500 MG Tab.Chew PO SCH ×2 (13:39→20:20)
[2021-04-14] MEDS: Oxybutynin 5 MG Tab.ER PO SCH (20:20)
[2021-04-14] MEDS: Famotidine 20 MG Tab PO SCH (20:21)
[2021-04-14] MEDS: atorvaSTATin 10 MG Tab PO SCH (20:21)
[2021-04-14] MEDS: Latanoprost 0.005% Ophth Soln 2.5 ML Bottle EYEBOTH SCH (20:22)
[2021-04-14] MEDS: Fluticasone Propionate Nasal Spray 16 GM Bottle NASBOTH SCH (20:22)
[2021-04-15] MEDS: Sodium Chloride 0.9% 1,000 ML IV SCH ×2 (04:29→14:58)
[2021-04-15] MEDS: Potassium Chloride 20 MEQ Tab.ER PO SCH (08:02)
[2021-04-15] MEDS: Calcium Carbonate 500 MG Tab.Chew PO SCH ×3 (08:02→21:20)
[2021-04-15] MEDS: Multivitamin Tab PO SCH (08:03)
[2021-04-15] MEDS: Allopurinol 100 MG Tab PO SCH (08:03)
[2021-04-15] MEDS: Vancomycin 125 MG Cap PO SCH ×4 (08:03→21:21)
[2021-04-15] MEDS: Carvedilol 6.25 MG Tab PO SCH ×2 (08:08→17:25)
--- NOTE | 2021-04-15 13:04 | PN ---
DATE SEEN: 04/15/2021 HISTORY: Marta is a 80-year-old woman who was admitted on 04/13/2021 with severe diarrhea and a syncopal episode. She was found to be Clostridium difficile positive. She was initially started on IV metronidazole and was switched to oral vancomycin. She has been afebrile. Now, her blood pressure runs low in the 85 to 95 systolic range. She is not having any significant abdominal pains, but says her abdomen feels full. She does not have appetite but is forcing herself to eat. PHYSICAL EXAMINATION: GENERAL: She is alert and comfortable. VITAL SIGNS: Blood pressure 89/47, pulse 61, respirations normal, temperature 98.7, and O2 saturation 98% on room air. SKIN: Anicteric, warm and dry without rash. MOUTH: Dry. LUNGS: Clear. HEART: Regular. ABDOMEN: Bowel sounds that are normal. No distention. Minimal tenderness to left lateral abdomen. EXTREMITIES: Show no edema. ASSESSMENT: 1. Clostridium difficile diarrhea with dehydration and mild hypotension. 2. History of pacemaker. 3. Recent hypocalcemia, replaced IV and orally. 4. High INR. 5. Long-term anticoagulation for chronic atrial fibrillation. PLAN: We will continue her IV hydration. We will hold her losartan. Continue the oral vancomycin. When she is able to maintain hydration adequately, we will plan to send her home on oral vancomycin to finish a 2 week course of treatment and followup as an outpatient on a p.r.n. basis. /[id number] MATEUSZ/HOLLEY
[2021-04-15] MEDS: Fluticasone Propionate Nasal Spray 16 GM Bottle NASBOTH SCH (21:19)
[2021-04-15] MEDS: Oxybutynin 5 MG Tab.ER PO SCH (21:19)
[2021-04-15] MEDS: Famotidine 20 MG Tab PO SCH (21:20)
[2021-04-15] MEDS: Latanoprost 0.005% Ophth Soln 2.5 ML Bottle EYEBOTH SCH (21:21)
[2021-04-16] MEDS: Sodium Chloride 0.9% 1,000 ML IV SCH (05:13)
[2021-04-16] MEDS: Potassium Chloride 20 MEQ Tab.ER PO SCH (08:29)
[2021-04-16] MEDS: Multivitamin Tab PO SCH (08:29)
[2021-04-16] MEDS: Carvedilol 6.25 MG Tab PO SCH ×2 (08:29→17:29)
[2021-04-16] MEDS: Calcium Carbonate 500 MG Tab.Chew PO SCH ×3 (08:30→20:26)
[2021-04-16] MEDS: Allopurinol 100 MG Tab PO SCH (08:30)
[2021-04-16] MEDS: Vancomycin 125 MG Cap PO SCH ×4 (08:30→20:26)
--- NOTE | 2021-04-16 11:48 | PN ---
DATE SEEN: 04/16/2021 HISTORY: Marta is a 80-year-old woman with a history of a pacemaker, mitral insufficiency, atrial fibrillation, on anticoagulation, and gout who was admitted on 04/13/2021 with diarrhea, shown to be positive for C. difficile. She has been on oral vancomycin for this. She has been receiving IV fluids for her hypotension and syncopal event, and her losartan was discontinued. She is slowly improving. Her stools are becoming slightly more firm. She had 4 stools overnight and 1 this morning that were yellowish green in color. She is having no pains, but is having a full sensation that persists in her abdomen. PHYSICAL EXAMINATION: GENERAL: She is alert, comfortable, but appears tired and slightly weak. VITAL SIGNS: Blood pressure 137/67, pulse 73 and regular, respirations normal, O2 saturation 98% on room air, temp 97.9. SKIN: Anicteric, warm, dry without rash. MOUTH: Dry. LUNGS: Clear. HEART: Regular with a 3/6 systolic murmur over the aortic and mitral areas. ABDOMEN: Normal bowel sounds. Soft. No distention. Minimal left lower quadrant tenderness. EXTREMITIES: Show no edema. LABORATORY DATA: Hemoglobin 9.5, platelets 150, MCV 95, INR 3.14, BUN 20, creatinine 1.2, calcium 8.3, phosphorus 2.2, CRP 11.8. ASSESSMENT: 1. Clostridium difficile colitis. 2. Anemia, likely stool-related blood loss. 3. Elevated INR. Coumadin currently held. 4. Atrial fibrillation with pacemaker in place and long-term warfarin therapy. 5. Prerenal azotemia, improved. 6. Hypocalcemia and hypophosphatemia. PLAN: We will discontinue her IV fluids, saline lock her IV, increase her activity as tolerated. Hold her Coumadin for 1 more day, then resume at her normal dose anticipated. If she continues to be stable off IV fluid, we will plan for discharge in 24 to 48 hours. /[id number] RO/MODL
[2021-04-16] MEDS: Phosphorus #1 250 MG Tab PO SCH ×2 (12:58→20:26)
[2021-04-16] MEDS ORDERED: Warfarin 2 MG Tab PO ONE (16:00)
[2021-04-16] MEDS: Fluticasone Propionate Nasal Spray 16 GM Bottle NASBOTH SCH (20:25)
[2021-04-16] MEDS: Latanoprost 0.005% Ophth Soln 2.5 ML Bottle EYEBOTH SCH (20:25)
[2021-04-16] MEDS: Famotidine 20 MG Tab PO SCH (20:26)
[2021-04-16] MEDS: Oxybutynin 5 MG Tab.ER PO SCH (20:28)
[2021-04-16] MEDS ORDERED: Zolpidem 5 MG Tab PO ONE (21:00)
[2021-04-17 00:14] VITALS: PULSE 74
[2021-04-17 08:09] VITALS: BP 127/75
[2021-04-17] MEDS: Potassium Chloride 20 MEQ Tab.ER PO SCH (08:19)
[2021-04-17] MEDS: Vancomycin 125 MG Cap PO SCH (08:19)
[2021-04-17] MEDS: Carvedilol 6.25 MG Tab PO SCH (08:19)
[2021-04-17] MEDS: Calcium Carbonate 500 MG Tab.Chew PO SCH (08:19)
[2021-04-17] MEDS: Allopurinol 100 MG Tab PO SCH (08:19)
[2021-04-17] MEDS: Multivitamin Tab PO SCH (08:19)
[2021-04-17] MEDS: Phosphorus #1 250 MG Tab PO SCH (08:32)
--- NOTE | 2021-04-17 11:20 | DISCH ---
DISCHARGE DATE: 04/17/2021 PRIMARY FINAL DIAGNOSIS: Acute Clostridium difficile colitis. OTHER DIAGNOSES: Severe dehydration with orthostatic syncope, acute kidney injury. OPERATIONS: None. COMPLICATIONS: The patient had a high INR that slowly came down. SUMMARY: Marta is a 80-year-old woman with a history of AFib, pacemaker, and long-term anticoagulation use. She came in with severe diarrhea and a syncopal episode. She was found to be quite dehydrated and had copious diarrhea. She was started on oral vancomycin. She was initially started on IV metronidazole, then switched to oral vancomycin. Her Coumadin was withheld and IV fluids were used to replace her dehydration. She slowly but steadily improved and by 04/17/2021, she was having small amounts of formed stool with substance to it. She was afebrile and having no abdominal pain. MEDICATIONS ON DISCHARGE: She is discharged in improved condition to continue her medications as follows: 1. Vancomycin 125 mg p.o. q.i.d. x1 week. 2. Tylenol with codeine p.r.n. 3. Allopurinol 100 mg daily. 4. Calcium daily. 5. Carvedilol 6.25 mg b.i.d. 6. Famotidine 20 mg b.i.d. 7. Flonase p.r.n. 8. Latanoprost eye drops as before. 9. Multiple vitamin 1 daily. 10.Oxybutynin 5 mg two tabs at bedtime. 11.Potassium 10 mEq 2 daily. 12.Warfarin 2 mg daily. 13.Atorvastatin 10 mg daily. 14.Bumex 2 mg daily. 15.Losartan 100 mg daily. She is to have an INR check in the clinic in 2 days and then follow up with Dr. Luevano in 10 days. /[id number] RO/MODL
[2021-04-18 08:11] LABS: IRON BIND.CAP.(TIBC) 208 ug/dL (250-450); IRON SATURATION 32 % (15-55); IRON, SERUM 67 ug/dL (27-139); UIBC 141 ug/dL (118-369)
== END 2021-04-17 11:10 | disposition home or self-care (01) | DRG 372 ==
LOC: FB.ED 12:46 → FB.MS 15:18
PROVIDERS: ADMIT Family Medicine; ATTEND Family Medicine
DX: A04.72 Enterocolitis due to Clostridium difficile, not specified as recurrent (principal); N17.9 Acute kidney failure, unspecified; G93.40 Encephalopathy, unspecified; I48.20 Chronic atrial fibrillation, unspecified; I48.91 Unspecified atrial fibrillation; E86.0 Dehydration; E78.00 Pure hypercholesterolemia, unspecified; Z95.0 Presence of cardiac pacemaker; Z79.01 Long term (current) use of anticoagulants; Z79.899 Other long term (current) drug therapy; Z88.5 Allergy status to narcotic agent; N39.498 Other specified urinary incontinence; I11.0 Hypertensive heart disease with heart failure; I50.9 Heart failure, unspecified; Z88.6 Allergy status to analgesic agent; K59.09 Other constipation; R05 Cough; K21.9 Gastro-esophageal reflux disease without esophagitis; N31.9 Neuromuscular dysfunction of bladder, unspecified; R32 Unspecified urinary incontinence; M10.9 Gout, unspecified; Z86.73 Personal history of transient ischemic attack (TIA), and cerebral infarction without residual deficits; Z98.49 Cataract extraction status, unspecified eye; I34.0 Nonrheumatic mitral (valve) insufficiency; D64.9 Anemia, unspecified; E83.51 Hypocalcemia; E83.39 Other disorders of phosphorus metabolism; R79.1 Abnormal coagulation profile; I95.9 Hypotension, unspecified; Z20.822 Contact with and (suspected) exposure to COVID-19
CPT/HCPCS: 36415; 70450; 71045; 80053; 81001; 83605; 85610; 99285; J7030; U0002; 80048; 80069; 82728; 83540; 83550; 83735; 85018; 85025; 85045; 86140; 87230; 99284; A9270-GY; J0610; J3490

== ENCOUNTER 2021-05-04 16:11 | Emergency (ER) | payer MEDICARE, BC ==
[2021-05-04] MEDS ORDERED: Ondansetron 4 MG/2 ML SDV IVPUSH ONE (16:42)
[2021-05-04] MEDS ORDERED: Sodium Chloride 0.9% 10 ML Syringe FLUSH PRN (16:42)
[2021-05-04] MEDS ORDERED: Sodium Chloride 0.9% 1,000 ML IV SCH ×3 (16:45→20:00)
[2021-05-04] MEDS ORDERED: Morphine 4 MG/ML VIAL IVPUSH STA (16:59)
[2021-05-04] MEDS ORDERED: Iopamidol 755 Mg/ML 100 ML Bottle IV ONE (18:03)
--- NOTE | 2021-05-04 19:44 | EDM.PDOC ---
ED HPI GENERAL MEDICAL PROBLEM - General Chief Complaint: Gastrointestinal Problem Stated Complaint: INTESTINAL Time Seen by Provider: 05/04/21 16:30 Source of Information: Reports: Patient History Limitations: Reports: No Limitations - History of Present Illness INITIAL COMMENTS - FREE TEXT/NARRATIVE: Patient is a 80 YO WF who presented to the ED because of worsening diarrhea and abdominal pain. She was diagnosed with C dif colitis 3-4 weeks ago, got admitted for 5 days and discharged to home with oral vancomycin. She was feeling better and stool was normal in consistency until 2 days ago when she started to have abdominal cramping and diarrhea again which was worse today. She also c/o nausea but no vomiting. She has fever, chills, no cough/cold. - Related Data Allergies Allergy/AdvReac Type Severity Reaction Status Date / Time tramadol Allergy Confusion Verified 02/15/21 09:51 Home Meds: Home Meds Bumetanide 2 mg PO DAILY 03/31/17 [History] Fluticasone Propionate [Flonase] 2 spray NS BEDTIME 03/31/17 [History] Latanoprost 1 drop EYEBOTH BEDTIME 03/31/17 [History] Losartan [Cozaar] 25 mg PO DAILY@1200 03/31/17 [History] Oxybutynin [Oxybutynin ER] 10 mg PO BEDTIME 03/31/17 [History] Potassium Chloride 20 meq PO DAILY 03/31/17 [History] atorvaSTATin [Lipitor] 10 mg PO BEDTIME 03/31/17 [History] carvediloL [Carvedilol] 6.25 mg PO BIDMEALS 03/31/17 [History] Acetaminophen/Codeine [Tylenol with Codeine No.3 300MG/30MG] 1 tab PO BEDTIME PRN 03/06/21 [History] Calcium Carbonate/Vitamin D3 [Calcium Carbonate/Vitamin D 600 MG-200 Unit] 2 tab PO DAILY 03/06/21 [History] Docusate Sodium [Colace] 100 mg PO DAILY 03/06/21 [History] Famotidine [Pepcid] 20 mg PO BEDTIME 03/06/21 [History] Multivitamin with Minerals [Multiple Vitamin] 1 tab PO DAILY 03/06/21 [History] allopurinoL [Zyloprim] 100 mg PO DAILY 03/06/21 [History] polyethylene glycoL 3350 [MiraLAX] 17 gm PO DAILY PRN 03/06/21 [History] Calcium Carbonate [Tums] 1,000 mg PO TID tab.chew 04/17/21 [Rx] Vancomycin [Vancocin 125 MG Capsule] 125 mg PO QID #28 cap 04/17/21 [Rx] Warfarin [Coumadin] 2 mg PO DAILY #0 04/17/21 [Rx] Past Medical History HEENT History: Reports: Cataract, Sinusitis Cardiovascular History: Reports: Afib, Heart Failure, High Cholesterol, Hypertension, Pacemaker Respiratory History: Reports: Other (See Below) Other Respiratory History: CHRONIC COUGH Gastrointestinal History: Reports: Chronic Constipation, GERD 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 History: Reports: Neurogenic Bladder, Urinary Incontinence Other 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 History: on oxybutinin [employer] History: Reports: Musculoskeletal History: Reports: Fracture, Gout Neurological History: Reports: TIA Hematologic History: Reports: Anticoagulation Therapy Dermatologic History: Reports: None - Infectious Disease History Infectious Disease History: Reports: C-Difficile - Past Surgical History HEENT Surgical History: Reports: Cataract Surgery Cardiovascular Surgical History: Reports: Pacer GI Surgical History: Reports: Colonoscopy Musculoskeletal Surgical History: Reports: ORIF Social & Family History - Family History Family Medical History: No Pertinent Family History - Tobacco Use Tobacco Use Status *Q: Unknown Ever Used Tobacco - Caffeine Use Caffeine Use: Reports: None ED ROS GENERAL - Review of Systems Review Of Systems: See Below Constitutional: Reports: Fever, Chills, Weakness HEENT: Reports: No Symptoms Respiratory: Reports: No Symptoms Cardiovascular: Reports: No Symptoms, Palpitations GI/Abdominal: Reports: Abdominal Pain, Diarrhea, Nausea : Reports: No Symptoms Musculoskeletal: Reports: No Symptoms Skin: Reports: No Symptoms Neurological: Reports: No Symptoms Psychiatric: Reports: No Symptoms ED EXAM, GI/ABD - Physical Exam Exam: See Below Exam Limited By: No Limitations General Appearance: Alert, No Apparent Distress Ears: Normal External Exam, Normal Canal Nose: Normal Inspection, Normal Mucosa, No Blood Throat/Mouth: Normal Inspection, Normal Lips, Normal Teeth Head: Atraumatic, Normocephalic Neck: Normal Inspection, Supple, Non-Tender, Full Range of Motion Respiratory/Chest: No Respiratory Distress, Lungs Clear, Normal Breath Sounds, No Accessory Muscle Use, Chest Non-Tender Cardiovascular: Normal Peripheral Pulses, Regular Rate, Rhythm, No Edema, No Gallop, No JVD, No Murmur GI/Abdominal Exam: Soft, Other (hyperactive BS, diffusely tender abdomen) Back Exam: Normal Inspection, Full Range of Motion Extremities: Normal Inspection, Normal Range of Motion, Non-Tender, No Pedal Edema, Normal Capillary Refill Neurological: Alert, Oriented, CN II-XII Intact, Normal Cognition, Normal Gait, Normal Reflexes, No Motor/Sensory Deficits Psychiatric: Normal Affect, Normal Mood Skin Exam: Warm Course - Vital Signs Text/Narrative:: Lab/CT abd/pelvis was reviewed and discussed with patient and her son NS 2 L bolus Zofran 4 mg IV x1 Morphine 4 mg IV x1 Last Recorded V/S: Last Vital Signs Temp 38.4 C H 05/04/21 16:21 Pulse 74 05/04/21 16:21 Resp 16 05/04/21 16:21 BP 118/56 L 05/04/21 16:21 Pulse Ox 97 05/04/21 16:21 - Orders/Labs/Meds Orders: Active Orders 24 hr Category Date Time Status Abdomen Pelvis w Cont [CT] Stat Exams 05/04/21 17:30 Taken C DIFFICILE AG/TOXIN W/REFLEX [RM] Stat Lab 05/04/21 17:27 Ordered Sodium Chloride 0.9% [Normal Saline] 1,000 ml Med 05/04/21 16:45 Active IV ASDIRECTED Sodium Chloride 0.9% [Normal Saline] 1,000 ml Med 05/04/21 17:45 Active IV ASDIRECTED Sodium Chloride 0.9% [Saline Flush] Med 05/04/21 16:42 Active 10 ml FLUSH ASDIRECTED PRN Saline Lock Insert [OM.PC] Routine Oth 05/04/21 16:42 Ordered Medication Orders Sodium Chloride (Normal Saline) 1,000 mls @ 999 mls/hr IV ASDIRECTED RANDELL Last Admin: 05/04/21 17:00 Dose: 999 mls/hr Documented by: TANYA Sodium Chloride (Normal Saline) 1,000 mls @ 999 mls/hr IV ASDIRECTED RANDELL Sodium Chloride (Sodium Chloride 0.9% 10 Ml Syringe) 10 ml FLUSH ASDIRECTED PRN PRN Reason: Keep Vein Open Last Admin: 05/04/21 16:50 Dose: 10 ml Documented by: TANYA Labs: Laboratory Tests 09/16/21 09/16/21 Range/Units 16:49 16:49 WBC 7.4 (3.0-10.3) x10-3/uL RBC 3.84 (3.60-5.20) x10(6)uL Hgb 11.8 (11.4-15.5) g/dL Hct 36.5 (34.2-48.2) % MCV 95.0 (76.7-100.5) fL MCH 30.6 (23.9-33.9) pg MCHC 32.2 (31.9-34.8) g/dL RDW 14.7 (12.3-16.5) % Plt Count 205 (151-488) x10(3)uL MPV 7.3 (7.1-12.4) fL Neut % (Auto) 72.1 (30.8-76.2) % Lymph % (Auto) 14.0 L (18.4-52.1) % Walker % (Auto) 12.9 (4.4-15.7) % Eos % (Auto) 0.5 L (0.6-8.1) % Baso % (Auto) 0.5 (0.2-1.5) % Neut # (Auto) 5.3 (1.5-6.3) x10-3/uL Lymph # (Auto) 1.0 (1.0-4.4) x10-3/uL Walker # (Auto) 1.0 (0.3-1.0) x10-3/uL Eos # (Auto) 0.0 (0.0-0.8) x10-3/uL Baso # (Auto) 0.0 (0.0-0.1) x10-3/uL Sodium 136 (135-145) mmol/L Potassium 4.2 (3.5-5.3) mmol/L Chloride 98 L D (100-110) mmol/L Carbon Dioxide 29 (21-32) mmol/L BUN 23 H (7-18) mg/dL Creatinine 1.3 H (0.55-1.02) mg/dL Est Cr Clr Drug Dosing TNP Estimated GFR (MDRD) 40 L (>60) BUN/Creatinine Ratio 17.7 (9-20) Glucose 101 (80-116) mg/dL Calcium 8.9 (8.6-10.2) mg/dL Total Bilirubin 1.9 H (0.1-1.3) mg/dL AST 22 D (5-25) IU/L ALT 16 D (12-36) U/L Alkaline Phosphatase 43 L (56-112) IU/L Total Protein 6.5 (6.0-8.0) g/dL Albumin 2.9 L (3.2-4.6) g/dL Globulin 3.6 g/dL Albumin/Globulin Ratio 0.8 Meds: Medications Generic Name Dose Route Start Last Admin Trade Name Freq PRN Reason Stop Dose Admin Sodium Chloride 1,000 mls @ 999 mls/hr 05/04/21 16:45 05/04/21 17:00 Normal Saline IV 999 mls/hr ASDIRECTED RANDELL Administration Sodium Chloride 1,000 mls @ 999 mls/hr 05/04/21 17:45 Normal Saline IV ASDIRECTED RANDELL Sodium Chloride 10 ml 05/04/21 16:42 05/04/21 16:50 Sodium Chloride 0.9% 10 Ml Syringe FLUSH 10 ml ASDIRECTED PRN Administration Keep Vein Open Discontinued Medications Generic Name Dose Route Start Last Admin Trade Name Freq PRN Reason Stop Dose Admin Iopamidol 100 ml 05/04/21 18:03 05/04/21 18:24 Iopamidol 755 Mg/Ml 100 Ml Bottle IV 05/04/21 18:04 100 ml . DIRECTED ONE Administration Morphine Sulfate 4 mg 05/04/21 16:59 05/04/21 17:12 Morphine 4 Mg/Ml Vial IVPUSH 05/04/21 17:00 4 mg NOW STA Administration Ondansetron HCl 4 mg 05/04/21 16:42 05/04/21 17:12 Ondansetron 4 Mg/2 Ml Sdv IVPUSH 05/04/21 16:43 4 mg ONETIME ONE Administration Departure - Departure Time of Disposition: 19:00 Disposition: DC/Tfer to Acute Hospital 02 Condition: Good Clinical Impression: C. difficile colitis, Dehydration, CANDY (acute kidney injury) - Discharge Information Referrals: Vineet Luevano MD [Primary Care Provider] - Sepsis Event Note (ED) - Evaluation Sepsis Screening Result: No Definite Risk - Focused Exam Vital Signs: Vital Signs Temp Pulse Resp BP Pulse Ox 05/04/21 16:21 38.4 C H 74 16 118/56 L 97 - My Orders Last 24 Hours: My Active Orders 05/04/21 16:42 Sodium Chloride 0.9% [Saline Flush] 10 ml FLUSH ASDIRECTED PRN Saline Lock Insert [OM.PC] Routine 05/04/21 16:45 Sodium Chloride 0.9% [Normal Saline] 1,000 ml IV ASDIRECTED 05/04/21 17:27 C DIFFICILE AG/TOXIN W/REFLEX [RM] Stat 05/04/21 17:30 Abdomen Pelvis w Cont [CT] Stat 05/04/21 17:45 Sodium Chloride 0.9% [Normal Saline] 1,000 ml IV ASDIRECTED - Assessment/Plan Last 24 Hours: My Active Orders 05/04/21 16:42 Sodium Chloride 0.9% [Saline Flush] 10 ml FLUSH ASDIRECTED PRN Saline Lock Insert [OM.PC] Routine 05/04/21 16:45 Sodium Chloride 0.9% [Normal Saline] 1,000 ml IV ASDIRECTED 05/04/21 17:27 C DIFFICILE AG/TOXIN W/REFLEX [RM] Stat 05/04/21 17:30 Abdomen Pelvis w Cont [CT] Stat 05/04/21 17:45 Sodium Chloride 0.9% [Normal Saline] 1,000 ml IV ASDIRECTED
[2021-05-04] MEDS ORDERED: metroNIDAZOLE/Normal Saline 100 ML ONE (19:52)
[2021-05-04] MEDS ORDERED: metroNIDAZOLE/Normal Saline 500 MG in Premix Bag 1 BAG IV SCH (20:00)
[2021-05-05 02:31] VITALS: BP 124/68; PULSE 80
== END 2021-05-05 00:15 ==
LOC: FB.ED 16:11
DX: A04.72 Enterocolitis due to Clostridium difficile, not specified as recurrent (principal); N17.9 Acute kidney failure, unspecified; E86.0 Dehydration; I48.91 Unspecified atrial fibrillation; I11.0 Hypertensive heart disease with heart failure; I50.9 Heart failure, unspecified; M10.9 Gout, unspecified; K21.9 Gastro-esophageal reflux disease without esophagitis; Z95.0 Presence of cardiac pacemaker; Z88.5 Allergy status to narcotic agent; Z79.899 Other long term (current) drug therapy
CPT/HCPCS: 36415; 74177; 80053; 85025; 87230; 96365; 96375; 99285; J2270; J2405; J3490; J7030; Q9967

== ENCOUNTER 2021-05-10 08:27 | Inpatient (IN) | payer MEDICARE, BC ==
[2021-05-10] MEDS ORDERED: Acetaminophen/Codeine 300-30 MG Tab PO PRN (14:25)
[2021-05-10] MEDS ORDERED: Mineral Oil/Petrolatum/Phenylephrine/Shark Liver Oil Oint 57 GM Tube RECTAL PRN (14:26)
--- NOTE | 2021-05-10 14:44 | PCM.HP.2 ---
H&P History of Present Illness - General Date of Service: 05/10/21 Admit Problem/Dx: Admission Diagnosis/Problem Admission Diagnosis/Problem Rehabilitation therapy Source of Information: Patient, Old Records, Provider - History of Present Illness Initial Comments - Free Text/Narative: Marta is swing bed admission for weakness, had been admitted to [facility] for C. difficile colitis on 05/04, they started her on Metronidazole and Vancomycin, they titrated up to 500 mg qid and she started having decreased stools. She states she has been getting more fluid in her legs that past few days from all the IV fluids and did not get her Bumex this morning and would like this afternoon and then tomorrow at her usual time. She denies any fever, chills, shortness of breath, chest pain, nausea, vomiting. No dysuria, frequency or hematuria. She is a full code. She is to complete a 21 day course of Metronidazole/vancomycin. She was admitted on 04/13-04/17 here at [facility] for C. difficile, treated with Vancomycin 125 mg qid had 4 days in hospital and discharged with 7 more days then started having diarrhea again on 05/01. - Related Data Allergies/Adverse Reactions: Allergies Allergy/AdvReac Type Severity Reaction Status Date / Time tramadol Allergy Confusion Verified 05/04/21 23:50 Home Medications: Home Meds Bumetanide 2 mg PO DAILY 03/31/17 [History] Fluticasone Propionate [Flonase] 1 spray NASBOTH BEDTIME 03/31/17 [History] Latanoprost 1 drop EYEBOTH BEDTIME 03/31/17 [History] Oxybutynin [Oxybutynin ER] 10 mg PO BEDTIME 03/31/17 [History] atorvaSTATin [Lipitor] 10 mg PO BEDTIME 03/31/17 [History] carvediloL [Carvedilol] 6.25 mg PO BIDMEALS 03/31/17 [History] Acetaminophen/Codeine [Tylenol with Codeine No.3 300MG/30MG] 1 tab PO BEDTIME PRN 03/06/21 [History] Calcium Carbonate/Vitamin D3 [Calcium Carbonate/Vitamin D 600 MG-200 Unit] 2 tab PO DAILY 03/06/21 [History] Famotidine [Pepcid] 20 mg PO BEDTIME 03/06/21 [History] Multivitamin with Minerals [Multiple Vitamin] 1 tab PO DAILY 03/06/21 [History] allopurinoL [Zyloprim] 100 mg PO DAILY 03/06/21 [History] polyethylene glycoL 3350 [MiraLAX] 17 gm PO DAILY PRN 03/06/21 [History] Calcium Carbonate [Tums] 1,000 mg PO TID tab.chew 04/17/21 [Rx] Warfarin [Coumadin] 2 mg PO DAILY #0 04/17/21 [Rx] Losartan [Cozaar] 25 mg PO DAILY@1200 05/10/21 [History] MO/Pet,Wh/Phenylephrine/Shk Lv [Preparation H Oint] 1 applic RECTAL Q6H PRN 05/10/21 [History] Potassium Chloride 20 meq PO DAILY 05/10/21 [History] Vancomycin [Vancocin 125 MG Capsule] 500 mg PO QID 05/10/21 [History] Zinc Oxide [Zinc Oxide 20% Oint] 1 applic TOP TID 05/10/21 [History] metroNIDAZOLE [Metronidazole] 500 mg PO QID 05/10/21 [History] Past Medical History HEENT History: Reports: Cataract, Sinusitis Cardiovascular History: Reports: Afib, Heart Failure, High Cholesterol, Hypertension, Pacemaker Respiratory History: Reports: Other (See Below) Other Respiratory History: CHRONIC COUGH Gastrointestinal History: Reports: Chronic Constipation, GERD 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 History: Reports: Neurogenic Bladder, Urinary Incontinence Other 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 History: on oxybutinin [employer] History: Reports: Musculoskeletal History: Reports: Fracture, Gout Neurological History: Reports: TIA Psychiatric History: Reports: None Hematologic History: Reports: Anticoagulation Therapy Immunologic History: Reports: None Oncologic (Cancer) History: Reports: None Dermatologic History: Reports: None - Infectious Disease History Infectious Disease History: Reports: C-Difficile - Past Surgical History HEENT Surgical History: Reports: Cataract Surgery Cardiovascular Surgical History: Reports: Pacer GI Surgical History: Reports: Colonoscopy Musculoskeletal Surgical History: Reports: ORIF Oncologic Surgical History: Reports: None Social & Family History - Family History Family Medical History: No Pertinent Family History - Caffeine Use Caffeine Use: Reports: None H&P Review of Systems - Review of Systems: Review Of Systems: Comprehensive ROS is negative, except as noted in HPI. Exam - Exam Exam: See Below - Vital Signs Vital Signs: Last Vital Signs Temp Pulse Resp BP Pulse Ox 99 05/10/21 14:22 - Exam General: Alert, Oriented, Cooperative. No: Mild Distress HEENT: PERRLA, EOMI, Hearing Intact, Mucosa Moist & [place] Neck: Trachea Midline Lungs: Clear to Auscultation, Normal Respiratory Effort, Decreased Breath Sounds (bibasilar) Cardiovascular: Regular Rate, Irregular Rhythm, Systolic Murmur GI/Abdominal Exam: Soft, Non-Tender, No Distention, Abnormal Bowel Sounds (hyperactive x 4) (Female) Exam: Deferred Rectal (Female) Exam: Hemorrhoids, Other (erythema along gluteal fold, bilateral buttocks, small 4 mm x 10 mm superficial ulcer on right buttock) Extremities: Pedal Edema (2+BLE to thighs) Peripheral Pulses: 2+: Radial (L), Radial (R) Skin: Warm, Dry, Decubitis Neurological: Cranial Nerves Intact, Normal Speech, Normal Tone Psychiatric: Normal Mood Sepsis Event Note - Evaluation Sepsis Screening Result: No Definite Risk - Focused Exam Vital Signs: Vital Signs Pulse Ox 05/10/21 14:22 99 *Q Meaningful Use (ADM) - VTE Risk Assess *Q Each Risk Factor Represents 1 Point: Congestive heart failure (CHF) Total Score 1 Point Risk Factors: 1 Each Risk Factor Represents 2 Points: None Total Score 2 Point Risk Factors: 0 Each Risk Factor Represents 3 Points: Age 75 Years or Greater Total Score 3 Point Risk Factors: 3 Each Risk Factor Represents 5 Points: None Total Score 5 Point Risk Factors: 0 Venous Thromboembolism Risk Factor Score *Q: 4 - Problem List (1) Weakness SNOMED Code(s): 65471128 ICD Code: R53.1 - WEAKNESS Status: Acute Current Visit: Yes (2) C. difficile colitis SNOMED Code(s): 167232351 ICD Code: A04.72 - ENTEROCOLITIS D/T CLOSTRIDIUM DIFFICILE, NOT SPCF RECUR Status: Acute Current Visit: No (3) Superficial ulcer of skin SNOMED Code(s): 32696454 ICD Code: L98.491 - NON-PRS CHRONIC ULCER SKIN/ SITES LIMITED TO BRKDWN SKIN Status: Acute Current Visit: Yes Problem Details: right buttock, 4 mm x 10 mm (4) Anticoagulant long-term use SNOMED Code(s): 798373223 ICD Code: Z79.01 - USP (CURRENT) USE OF ANTICOAGULANTS Status: Chronic Current Visit: No (5) Atrial fibrillation SNOMED Code(s): 20770645 ICD Code: I48.91 - UNSPECIFIED ATRIAL FIBRILLATION Status: Chronic Current Visit: No Problem List Initiated/Reviewed/Updated: Yes Orders Last 24hrs: Active Orders 24 hr Category Date Time Status Patient Status [ADT] Routine ADT 05/10/21 14:22 Active Height and Weight [RC] WEEKLY Care 05/10/21 14:22 Active Oxygen Therapy [RC] PRN Care 05/10/21 14:22 Active Up With Assistance [RC] ASDIRECTED Care 05/10/21 14:19 Active Up to Chair [RC] ASDIRECTED Care 05/10/21 14:19 Active VTE/DVT Education [RC] Per Unit Routine Care 05/10/21 14:22 Active Vital Signs [RC] PER UNIT ROUTINE Care 05/10/21 14:22 Active OT Evaluation and Treatment [CONS] Routine Cons 05/10/21 14:19 Active PT Evaluation and Treatment [CONS] Routine Cons 05/10/21 14:19 Active Soft Diet [DIET] Diet 05/10/21 Dinner Active INR,PT,PROTHROMBIN TIME [COAG] Routine Lab 05/10/21 14:27 Ordered Acetaminophen/Codeine [Tylenol with Codeine No.3 300MG/ Med 05/10/21 14:25 Active 30MG] 1 tab PO BEDTIME PRN Bumetanide [Bumex] Med 05/10/21 14:45 Active 2 mg PO DAILY Calcium Carbonate [Tums] Med 05/10/21 21:00 Active 1,000 mg PO TID Famotidine [Pepcid] Med 05/10/21 21:00 Active 20 mg PO BEDTIME Fluticasone Propionate [Flonase] Med 05/10/21 21:00 Ordered DOSE gm NASBOTH BEDTIME Latanoprost [Xalatan 0.005% Ophth Soln] Med 05/10/21 21:00 Ordered DOSE ml EYEBOTH BEDTIME Losartan [Cozaar] Med 05/11/21 12:00 Active 25 mg PO DAILY@1200 MO/Pet,Wh/Phenylephrine/Shk Lv [Preparation H Oint] Med 05/10/21 14:26 Ordered DOSE gm RECTAL Q6H PRN Multivitamin with Minerals [Multiple Vitamin] Med 05/11/21 09:00 Ordered 1 tab PO DAILY Oxybutynin [Oxybutynin ER] Med 05/10/21 21:00 Ordered 10 mg PO BEDTIME Potassium Chloride [Potassium Chloride] Med 05/11/21 09:00 Ordered 20 meq PO DAILY Vancomycin [Vancocin 125 MG Capsule] Med 05/10/21 17:00 Ordered 500 mg PO QID Warfarin [Coumadin] Med 05/11/21 09:00 Ordered 2 mg PO DAILY Zinc Oxide Med 05/10/21 21:00 Ordered DOSE gm TOP TID allopurinoL [Zyloprim] Med 05/11/21 09:00 Active 100 mg PO DAILY atorvaSTATin [Lipitor] Med 05/10/21 21:00 Active 10 mg PO BEDTIME carvediloL [Coreg] Med 05/10/21 18:00 Active 6.25 mg PO BIDMEALS metroNIDAZOLE [Flagyl] Med 05/10/21 17:00 Ordered 500 mg PO QID Antiembolic Hose [OM.PC] Per Unit Routine Oth 05/10/21 14:24 Ordered Resuscitation Status Routine Resus Stat 05/10/21 14:19 Ordered Medication Orders Acetaminophen/Codeine Phosphate (Acetaminophen/Codeine 300-30 Mg Tab) 1 tab PO BEDTIME PRN PRN Reason: Pain Allopurinol (Allopurinol 100 Mg Tab) 100 mg PO DAILY [facility] Atorvastatin Calcium (Atorvastatin 10 Mg Tab) 10 mg PO BEDTIME [facility] Bumetanide (Bumetanide 2 Mg Tab) 2 mg PO DAILY [facility] Calcium Carbonate/Glycine (Calcium Carbonate 500 Mg Tab.Chew) 1,000 mg PO TID [facility] Carvedilol (Carvedilol 6.25 Mg Tab) 6.25 mg PO BIDMEALS [facility] Famotidine (Famotidine 20 Mg Tab) 20 mg PO BEDTIME [facility] Fluticasone Propionate (Fluticasone Propionate Nasal [place] 16 Gm Bottle) gm NASBOTH BEDTIME [facility] Latanoprost (Latanoprost 0.005% Ophth Soln 2.5 Ml Bottle) ml EYEBOTH BEDTIME [facility] Losartan Potassium (Losartan 25 Mg Tab) 25 mg PO DAILY@1200 [facility] Metronidazole (Metronidazole 500 Mg Tab) 500 mg PO QID [facility] Multi-Ingred Cream/Lotion/Oil/Oint (Zinc Oxide 20% Oint 28.35 Gm Tube) gm TOP TID [facility] Non-Formulary Medication (Multivitamin With Minerals [Multiple Vitamin]) 1 tab PO DAILY [facility] Non-Formulary Medication (Potassium Chloride [Potassium Chloride]) 20 meq PO DAILY [facility] Oxybutynin Chloride (Oxybutynin 5 Mg Tab.Er) 10 mg PO BEDTIME [facility] Phenyleph/Shark Oil/Min Oil/Petrol (Mineral Oil/Petrolatum/Phenylephrine/Shark Liver Oil Oint 57 Gm Tube) gm RECTAL Q6H PRN PRN Reason: Hemorrhoids Vancomycin HCl (Vancomycin 125 Mg Cap) 500 mg PO QID [facility] Warfarin Sodium (Warfarin 2 Mg Tab) 2 mg PO DAILY [facility] Assessment/Plan Comment:: 1. Admit for swing bed for weakness and treatment of C. difficile colitis. 2. Weakness: PT/OT evaluate & treat. 3. C. difficile colitis: Vancomycin 500 mg po qid and metronidazole 500 mg po qid for 21 day course. Isolation precautions. 4. Atrial fibrillation: Coumadin per pharmacy. INR tomorrow. 5. CHF/HTN: Bumex 2 mg daily, given dose today and start in am tomorrow. 6. Diet: GI soft. 7. Activity: up to chair & with assistance. 8. DVT prophylaxis: TEDS. Coumadin. 9. CODE: FULL. 10. Discharge planning: once mets therapy goals. - Mortality Measure Prognosis:: Poor
[2021-05-10] MEDS ORDERED: Warfarin Sliding Scale PO SCH (14:45)
[2021-05-10] MEDS: Bumetanide 2 MG Tab PO SCH (15:41)
[2021-05-10] MEDS ORDERED: Warfarin 2 MG Tab PO SCH (16:00)
[2021-05-10] MEDS: metroNIDAZOLE 500 MG Tab PO SCH ×2 (16:38→21:06)
[2021-05-10] MEDS: Vancomycin 125 MG Cap PO SCH ×2 (16:39→21:09)
[2021-05-10] MEDS: Carvedilol 6.25 MG Tab PO SCH (17:03)
[2021-05-10] MEDS: Fluticasone Propionate Nasal Spray 16 GM Bottle NASBOTH SCH (21:06)
[2021-05-10] MEDS: atorvaSTATin 10 MG Tab PO SCH (21:07)
[2021-05-10] MEDS: Oxybutynin 5 MG Tab.ER PO SCH (21:08)
[2021-05-10] MEDS: Calcium Carbonate 500 MG Tab.Chew PO SCH (21:09)
[2021-05-10] MEDS: Famotidine 20 MG Tab PO SCH (21:09)
[2021-05-10] MEDS: Latanoprost 0.005% Ophth Soln 2.5 ML Bottle EYEBOTH SCH (21:10)
[2021-05-11] MEDS: Carvedilol 6.25 MG Tab PO SCH ×2 (08:05→17:33)
[2021-05-11] MEDS: Bumetanide 2 MG Tab PO SCH (10:04)
[2021-05-11] MEDS: metroNIDAZOLE 500 MG Tab PO SCH ×4 (10:05→20:15)
[2021-05-11] MEDS: Vancomycin 125 MG Cap PO SCH ×4 (10:06→20:16)
[2021-05-11] MEDS: Multivitamins with Iron/Calcium/Folic Acid/Minerals Tab PO SCH (10:09)
[2021-05-11] MEDS: Potassium Chloride 20 MEQ Tab.ER PO SCH (10:09)
[2021-05-11] MEDS: Allopurinol 100 MG Tab PO SCH (10:10)
[2021-05-11] MEDS: Calcium Carbonate 500 MG Tab.Chew PO SCH ×3 (10:10→20:16)
[2021-05-11] MEDS: Losartan 25 MG Tab PO SCH (13:46)
[2021-05-11] MEDS ORDERED: Warfarin 2 MG Tab PO ONE (16:00)
[2021-05-11] MEDS: Fluticasone Propionate Nasal Spray 16 GM Bottle NASBOTH SCH (20:15)
[2021-05-11] MEDS: Oxybutynin 5 MG Tab.ER PO SCH (20:16)
[2021-05-11] MEDS: Latanoprost 0.005% Ophth Soln 2.5 ML Bottle EYEBOTH SCH (20:16)
[2021-05-11] MEDS: atorvaSTATin 10 MG Tab PO SCH (20:16)
[2021-05-11] MEDS: Famotidine 20 MG Tab PO SCH (20:17)
[2021-05-12] MEDS: Vancomycin 125 MG Cap PO SCH ×4 (09:13→20:37)
[2021-05-12] MEDS: Carvedilol 6.25 MG Tab PO SCH ×2 (09:13→17:39)
[2021-05-12] MEDS: metroNIDAZOLE 500 MG Tab PO SCH ×4 (09:13→20:36)
[2021-05-12] MEDS: Bumetanide 2 MG Tab PO SCH (09:13)
[2021-05-12] MEDS: Potassium Chloride 20 MEQ Tab.ER PO SCH (09:13)
[2021-05-12] MEDS: Multivitamins with Iron/Calcium/Folic Acid/Minerals Tab PO SCH (09:13)
[2021-05-12] MEDS: Calcium Carbonate 500 MG Tab.Chew PO SCH ×3 (09:14→17:38)
[2021-05-12] MEDS: Allopurinol 100 MG Tab PO SCH (09:14)
[2021-05-12] MEDS: Losartan 25 MG Tab PO SCH (11:50)
[2021-05-12] MEDS ORDERED: Warfarin 2 MG Tab PO SCH ×2 (16:00→18:00)
[2021-05-12] MEDS: Fluticasone Propionate Nasal Spray 16 GM Bottle NASBOTH SCH (20:36)
[2021-05-12] MEDS: Oxybutynin 5 MG Tab.ER PO SCH (20:36)
[2021-05-12] MEDS: Latanoprost 0.005% Ophth Soln 2.5 ML Bottle EYEBOTH SCH (20:36)
[2021-05-12] MEDS: atorvaSTATin 10 MG Tab PO SCH (20:36)
[2021-05-12] MEDS: Famotidine 20 MG Tab PO SCH (20:37)
[2021-05-13] MEDS ORDERED: Allopurinol 100 MG Tab PO SCH (08:00)
[2021-05-13] MEDS ORDERED: Bumetanide 2 MG Tab PO SCH (08:00)
[2021-05-13] MEDS: metroNIDAZOLE 500 MG Tab PO SCH (08:00)
[2021-05-13] MEDS ORDERED: Multivitamins with Iron/Calcium/Folic Acid/Minerals Tab PO SCH (08:00)
[2021-05-13] MEDS ORDERED: Potassium Chloride 20 MEQ Tab.ER PO SCH (08:00)
[2021-05-13] MEDS: Carvedilol 6.25 MG Tab PO SCH (08:00)
[2021-05-13] MEDS: Vancomycin 125 MG Cap PO SCH (08:01)
[2021-05-13] MEDS: Calcium Carbonate 500 MG Tab.Chew PO SCH (08:01)
[2021-05-13 08:03] VITALS: BP 132/58; PULSE 71
--- NOTE | 2021-05-13 09:14 | PCM.DCSUM1 ---
Discharge Summary - Hospital Course HPI Initial Comments: 80-year-old lady came to us for swing bed admission secondary to weakness. She had been treated for C. difficile colitis and was titrated up to 125 mg 4 times daily vancomycin oral and 500 mg Flagyl 4 times daily oral. She had been having decreased stools during this time. She also received IV fluids while in the hospital and was having increased edema. Diagnosis: Stroke: No - Discharge Data Discharge Date: 05/13/21 Discharge Disposition: Home, W Home Health Agency Condition: Good - Referral to Home Health Date of Face to Face Encounter: 05/13/21 Reason for Homebound Status: Weakness Primary Care Physician: Vineet Luevano MD Skilled Need: Medication - Discharge Diagnosis/Problem(s) (1) Superficial ulcer of skin SNOMED Code(s): 35791471 ICD Code: L98.491 - NON-PRS CHRONIC ULCER SKIN/ SITES LIMITED TO BRKDWN SKIN Status: Acute Current Visit: Yes Problem Details: right buttock, 4 mm x 10 mm (2) Weakness SNOMED Code(s): 65689273 ICD Code: R53.1 - WEAKNESS Status: Acute Current Visit: Yes (3) C. difficile colitis SNOMED Code(s): 521243757 ICD Code: A04.72 - ENTEROCOLITIS D/T CLOSTRIDIUM DIFFICILE, NOT SPCF RECUR Status: Acute Current Visit: No (4) Anticoagulant long-term use SNOMED Code(s): 761657749 ICD Code: Z79.01 - HALF-WAY (CURRENT) USE OF ANTICOAGULANTS Status: Chronic Current Visit: No (5) Atrial fibrillation SNOMED Code(s): 61452326 ICD Code: I48.91 - UNSPECIFIED ATRIAL FIBRILLATION Status: Chronic Current Visit: No - Patient Summary/Data Consults: Consultations 05/10/21 14:19 OT Evaluation and Treatment [CONS] Routine Please Evaluate and Treat. OT Reason for Consult: ADL's This query below is only for informational purposes and is not editable. PT Evaluation and Treatment [CONS] Routine Please Evaluate and Treat. PT Reason for Consult: Strengthening This query below is only for informational purposes and is not editable. - Patient Instructions Diet: Usual Diet as Tolerated Activity: As Tolerated Driving: May Drive Today Showering/Bathing: May Shower - Discharge Plan *PRESCRIPTION DRUG MONITORING PROGRAM REVIEWED*: Not Applicable *COPY OF PRESCRIPTION DRUG MONITORING REPORT IN PATIENT [place]: Not Applicable Prescriptions/Med Rec: metroNIDAZOLE [Metronidazole] 500 mg PO QID #51 Home Medications: Home Meds Bumetanide 2 mg PO DAILY 03/31/17 [History] Fluticasone Propionate [Flonase] 1 spray NASBOTH BEDTIME 03/31/17 [History] Latanoprost 1 drop EYEBOTH BEDTIME 03/31/17 [History] Oxybutynin [Oxybutynin ER] 10 mg PO BEDTIME 03/31/17 [History] atorvaSTATin [Lipitor] 10 mg PO BEDTIME 03/31/17 [History] carvediloL [Carvedilol] 6.25 mg PO BIDMEALS 03/31/17 [History] Acetaminophen/Codeine [Tylenol with Codeine No.3 300MG/30MG] 1 tab PO BEDTIME PRN 03/06/21 [History] Calcium Carbonate/Vitamin D3 [Calcium Carbonate/Vitamin D 600 MG-200 Unit] 2 tab PO DAILY 03/06/21 [History] Famotidine [Pepcid] 20 mg PO BEDTIME 03/06/21 [History] Multivitamin with Minerals [Multiple Vitamin] 1 tab PO DAILY 03/06/21 [History] allopurinoL [Zyloprim] 100 mg PO DAILY 03/06/21 [History] polyethylene glycoL 3350 [MiraLAX] 17 gm PO DAILY PRN 03/06/21 [History] Calcium Carbonate [Tums] 1,000 mg PO TID tab.chew 04/17/21 [Rx] Warfarin [Coumadin] 2 mg PO DAILY #0 04/17/21 [Rx] Losartan [Cozaar] 25 mg PO DAILY@1200 05/10/21 [History] MO/Pet,Wh/Phenylephrine/Shk Lv [Preparation H Oint] 1 applic RECTAL Q6H PRN 05/10/21 [History] Potassium Chloride 20 meq PO DAILY 05/10/21 [History] Vancomycin [Vancocin 125 MG Capsule] 500 mg PO QID 05/10/21 [History] Zinc Oxide [Zinc Oxide 20% Oint] 1 applic TOP TID 05/10/21 [History] metroNIDAZOLE [Metronidazole] 500 mg PO QID #51 05/13/21 [Rx] - Discharge Summary/Plan Comment DC Time >30 min.: Yes Total # of Minutes for Discharge Time: 45 Discharge Summary/Plan Comment: Patient discharged to home with home health, PT/OT, and nursing home. Patient will continue taking oral vancomycin and Flagyl as directed and follow- up with specialist/infectious disease as directed. Patient has been restarted on her diuretic and encouraged to wear compression stockings and elevate her feet as necessary. Patient encouraged to follow-up with primary care physician as necessary. Patient encouraged to go to the Coumadin clinic/[facility] and have her INR rechecked on Saturday. - General Info Date of Service: 05/13/21 Admission Dx/Problem (Free Text: Admission Diagnosis/Problem Admission Diagnosis/Problem Rehabilitation therapy Subjective Update: Patient states that she feels well this morning but she does have some concerned about the swelling in her legs. She states that she was given Bumex this morning but this was the first time in several days. Functional Status: Reports: Pain Controlled, Tolerating Diet, Ambulating, Urinating - Review of Systems General: Reports: No Symptoms HEENT: Reports: No Symptoms Pulmonary: Reports: No Symptoms Cardiovascular: Reports: Edema. Denies: Chest Pain Gastrointestinal: Reports: No Symptoms 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: Reports: No Symptoms Musculoskeletal: Reports: No Symptoms Skin: Reports: No Symptoms Neurological: Reports: No Symptoms Psychiatric: Reports: No Symptoms - Patient Data Vitals - Most Recent: Last Vital Signs Temp 36.4 C 05/13/21 08:00 Pulse 71 05/13/21 08:00 Resp 16 05/13/21 08:00 BP 132/58 L 05/13/21 08:00 Pulse Ox 99 05/13/21 08:00 Weight - Most Recent: 78.925 kg Lab Results - Last 24 hrs: Laboratory Results - last 24 hr 05/13/21 Range/Units 06:18 PT 22.9 H (9.0-11.1) sec INR 2.23 H (1.00-1.24) Med Orders - Current: Current Medications Acetaminophen/Codeine Phosphate (Acetaminophen/Codeine 300-30 Mg Tab) 1 tab PO BEDTIME PRN PRN Reason: Pain Allopurinol (Allopurinol 100 Mg Tab) 100 mg PO DAILY@0800 [facility] Last Admin: 05/13/21 08:01 Dose: 100 mg Documented by: Atorvastatin Calcium (Atorvastatin 10 Mg Tab) 10 mg PO BEDTIME [facility] Last Admin: 05/12/21 20:36 Dose: 10 mg Documented by: Bumetanide (Bumetanide 2 Mg Tab) 2 mg PO DAILY@0800 [facility] Last Admin: 05/13/21 08:00 Dose: 2 mg Documented by: Calcium Carbonate/Glycine (Calcium Carbonate 500 Mg Tab.Chew) 1,000 mg PO TID@0800,1200,1800 [facility] Last Admin: 05/13/21 08:01 Dose: 1,000 mg Documented by: Carvedilol (Carvedilol 6.25 Mg Tab) 6.25 mg PO BIDMEALS [facility] Last Admin: 05/13/21 08:00 Dose: 6.25 mg Documented by: Famotidine (Famotidine 20 Mg Tab) 20 mg PO BEDTIME [facility] Last Admin: 05/12/21 20:37 Dose: 20 mg Documented by: Fluticasone Propionate (Fluticasone Propionate Nasal [place] 16 Gm Bottle) 0 gm NASBOTH BEDTIME [facility] Last Admin: 05/12/21 20:36 Dose: 1 spray Documented by: Latanoprost (Latanoprost 0.005% Ophth Soln 2.5 Ml Bottle) 0 ml EYEBOTH BEDTIME [facility] Last Admin: 05/12/21 20:36 Dose: 1 drop Documented by: Losartan Potassium (Losartan 25 Mg Tab) 25 mg PO DAILY@1200 [facility] Last Admin: 05/12/21 11:50 Dose: 25 mg Documented by: Metronidazole (Metronidazole 500 Mg Tab) 500 mg PO QID@0800,1200,1800,2100 [facility] Last Admin: 05/13/21 08:00 Dose: 500 mg Documented by: Multi-Ingred Cream/Lotion/Oil/Oint (Zinc Oxide 20% Oint 28.35 Gm Tube) 0 gm TOP TID@0800,1200,2100 [facility] Last Admin: 05/13/21 08:03 Dose: 1 applic Documented by: Multivitamins/Minerals (Multivitamins With Iron/Calcium/Folic Acid/Minerals Tab) 1 tab PO DAILY@0800 [facility] Last Admin: 05/13/21 08:00 Dose: 1 tab Documented by: Oxybutynin Chloride (Oxybutynin 5 Mg Tab.Er) 10 mg PO BEDTIME [facility] Last Admin: 05/12/21 20:36 Dose: 10 mg Documented by: Phenyleph/Shark Oil/Min Oil/Petrol (Mineral Oil/Petrolatum/Phenylephrine/Shark Liver Oil Oint 57 Gm Tube) 0 gm RECTAL Q6H PRN PRN Reason: Hemorrhoids Last Admin: 05/10/21 21:10 Dose: 1 applic Documented by: Potassium Chloride (Potassium Chloride 20 Meq Tab.Er) 20 meq PO DAILY@0800 [facility] Last Admin: 05/13/21 08:00 Dose: 20 meq Documented by: Vancomycin HCl (Vancomycin 125 Mg Cap) 500 mg PO QID@0800,1200,1800,2100 [facility] Last Admin: 05/13/21 08:01 Dose: 500 mg Documented by: Warfarin Sodium (Warfarin Sliding Scale) 1 each PO ASDIRECTED [facility] Warfarin Sodium (Warfarin 2 Mg Tab) 2 mg PO 1800 [facility] Last Admin: 05/12/21 17:38 Dose: 2 mg Documented by: Discontinued Medications Allopurinol (Allopurinol 100 Mg Tab) 100 mg PO DAILY [facility] Last Admin: 05/12/21 09:14 Dose: 100 mg Documented by: Bumetanide (Bumetanide 2 Mg Tab) 2 mg PO DAILY [facility] Last Admin: 05/12/21 09:13 Dose: 2 mg Documented by: Calcium Carbonate/Glycine (Calcium Carbonate 500 Mg Tab.Chew) 1,000 mg PO TID [facility] Last Admin: 05/12/21 14:03 Dose: 1,000 mg Documented by: Metronidazole (Metronidazole 500 Mg Tab) 500 mg PO QID [facility] Last Admin: 05/12/21 14:03 Dose: 500 mg Documented by: Multi-Ingred Cream/Lotion/Oil/Oint (Zinc Oxide 20% Oint 28.35 Gm Tube) 0 gm TOP TID [facility] Last Admin: 05/12/21 14:07 Dose: 1 applic Documented by: Multivitamins/Minerals (Multivitamins With Iron/Calcium/Folic Acid/Minerals Tab) 1 tab PO DAILY [facility] Last Admin: 05/12/21 09:13 Dose: 1 tab Documented by: Potassium Chloride (Potassium Chloride 20 Meq Tab.Er) 20 meq PO DAILY [facility] Last Admin: 05/12/21 09:13 Dose: 20 meq Documented by: Vancomycin HCl (Vancomycin 125 Mg Cap) 500 mg PO QID [facility] Last Admin: 05/12/21 14:03 Dose: 500 mg Documented by: Warfarin Sodium (Warfarin 2 Mg Tab) 2 mg PO DAILY@1600 [facility] Last Admin: 05/10/21 16:36 Dose: 2 mg Documented by: Warfarin Sodium (Warfarin 2 Mg Tab) 4 mg PO ONETIME ONE Stop: 05/11/21 16:01 Last Admin: 05/11/21 16:28 Dose: 4 mg Documented by: Comments:: Patient was able to stand up next to the bed without any assistance and stand throughout the interview and physical exam - Exam Quality Assessment: Reports: DVT Prophylaxis General: Reports: Alert, Oriented, Cooperative, No Acute Distress HEENT: Reports: EOMI Neck: Reports: Supple Lungs: Reports: Clear to Auscultation, Normal Respiratory Effort. Denies: Crackles Cardiovascular: Reports: Regular Rate, Regular Rhythm, Murmurs GI/Abdominal Exam: Normal Bowel Sounds, Non-Tender Back Exam: Reports: Normal Inspection. Denies: CVA Tenderness (R), CVA Tenderness (L) Extremities: Pedal Edema Skin: Reports: Warm, Dry Neurological: Reports: No New Focal Deficit Psy/Mental Status: Reports: Alert, Normal Affect, Normal Mood
== END 2021-05-13 11:00 | disposition home health service (06) | DRG 372 ==
LOC: FB.MS 12:58
PROVIDERS: ADMIT Family Medicine; ATTEND Student in an Organized Health Care Education/Training Program
DX: A04.72 Enterocolitis due to Clostridium difficile, not specified as recurrent (principal); I48.20 Chronic atrial fibrillation, unspecified; R53.1 Weakness; L98.491 Non-pressure chronic ulcer of skin of other sites limited to breakdown of skin; E78.00 Pure hypercholesterolemia, unspecified; K59.09 Other constipation; K21.9 Gastro-esophageal reflux disease without esophagitis; N31.9 Neuromuscular dysfunction of bladder, unspecified; N39.498 Other specified urinary incontinence; I11.0 Hypertensive heart disease with heart failure; I50.9 Heart failure, unspecified; Z79.01 Long term (current) use of anticoagulants; Z88.6 Allergy status to analgesic agent; Z79.899 Other long term (current) drug therapy; Z95.0 Presence of cardiac pacemaker; Z86.73 Personal history of transient ischemic attack (TIA), and cerebral infarction without residual deficits; Z98.49 Cataract extraction status, unspecified eye
CPT/HCPCS: 36415; 85610; 97110-GO; 97116-GP; 97161-GP; 97165-GO; 97530-GP; 97535-GO; A9270-GY

== ENCOUNTER 2021-06-06 19:23 | Emergency (ER) | payer MEDICARE, BC ==
--- NOTE | 2021-06-06 19:31 | EDM.PDOC ---
ED HPI GENERAL MEDICAL PROBLEM - General Stated Complaint: NOSEBLEED Time Seen by Provider: 06/06/21 19:25 Source of Information: Reports: Patient History Limitations: Reports: No Limitations - History of Present Illness INITIAL COMMENTS - FREE TEXT/NARRATIVE: 80-year-old female who reports onset of left-sided nosebleed at about 10:50 AM yesterday morning. She states it was very short-lived and stopped on its own. She had no more problems until approximate 6 PM today when she went to the bathroom after eating supper when she sat on the toilet she noted a drop of blood came from her right nostril and since then she has continued to have bleeding from the right nostril despite applying direct pressure to the nose for a period of time, applying an ice pack to the nose for a period of time and elev ating her head. Despite all of this, she has continued to have a nosebleed and presents to the emergency department for evaluation. She has had no direct trauma to the area. She hasn't been putting anything in her nostril other than the tissue that she put in there to try to get the bleeding to stop. She did put Vicks vaporub on the gauze when she presented in her nostril. She has had no weakness or dizziness. There has been no nausea or vomiting. She also denies any pain in the area. She rates her pain as a 0/10. No fevers or chills. No difficulty breathing. She is chronically anticoagulated with Coumadin but has just recently started back on her Coumadin after being off of this medication for a period time. There are no other associated signs or symptoms. There are no other modifying factors. 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: Reports: Home Treatments (As outlined above.) nose Pain Score (Numeric/FACES): 0 - Related Data Allergies Allergy/AdvReac Type Severity Reaction Status Date / Time tramadol Allergy Confusion Verified 05/04/21 23:50 Home Meds: Home Meds Bumetanide 2 mg PO DAILY 03/31/17 [History] Fluticasone Propionate [Flonase] 1 spray NASBOTH BEDTIME 03/31/17 [History] Latanoprost 1 drop EYEBOTH BEDTIME 03/31/17 [History] Oxybutynin [Oxybutynin ER] 10 mg PO BEDTIME 03/31/17 [History] atorvaSTATin [Lipitor] 10 mg PO BEDTIME 03/31/17 [History] carvediloL [Carvedilol] 6.25 mg PO BIDMEALS 03/31/17 [History] Acetaminophen/Codeine [Tylenol with Codeine No.3 300MG/30MG] 1 tab PO BEDTIME PRN 03/06/21 [History] Calcium Carbonate/Vitamin D3 [Calcium Carbonate/Vitamin D 600 MG-200 Unit] 2 tab PO DAILY 03/06/21 [History] Famotidine [Pepcid] 20 mg PO BEDTIME 03/06/21 [History] Multivitamin with Minerals [Multiple Vitamin] 1 tab PO DAILY 03/06/21 [History] allopurinoL [Zyloprim] 100 mg PO DAILY 03/06/21 [History] polyethylene glycoL 3350 [MiraLAX] 17 gm PO DAILY PRN 03/06/21 [History] Calcium Carbonate [Tums] 1,000 mg PO TID tab.chew 04/17/21 [Rx] Warfarin [Coumadin] 2 mg PO DAILY #0 04/17/21 [Rx] Losartan [Cozaar] 25 mg PO DAILY@1200 05/10/21 [History] MO/Pet,Wh/Phenylephrine/Shk Lv [Preparation H Oint] 1 applic RECTAL Q6H PRN 05/10/21 [History] Potassium Chloride 20 meq PO DAILY 05/10/21 [History] Vancomycin [Vancocin 125 MG Capsule] 500 mg PO QID 05/10/21 [History] Zinc Oxide [Zinc Oxide 20% Oint] 1 applic TOP TID 05/10/21 [History] metroNIDAZOLE [Metronidazole] 500 mg PO QID #51 05/13/21 [Rx] Past Medical History HEENT History: Reports: Cataract, Sinusitis Cardiovascular History: Reports: Afib, Heart Failure, High Cholesterol, Hypertension, Pacemaker Respiratory History: Reports: Other (See Below) Other Respiratory History: CHRONIC COUGH Gastrointestinal History: Reports: Chronic Constipation, GERD 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 History: Reports: Neurogenic Bladder, Urinary Incontinence Other 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 History: on oxybutinin Musculoskeletal History: Reports: Fracture, Gout Neurological History: Reports: TIA Hematologic History: Reports: Anticoagulation Therapy (On Coumadin.) - Infectious Disease History Infectious Disease History: Reports: C-Difficile - Past Surgical History HEENT Surgical History: Reports: Cataract Surgery Cardiovascular Surgical History: Reports: Pacer GI Surgical History: Reports: Colonoscopy Musculoskeletal Surgical History: Reports: ORIF Social & Family History - Tobacco Use Tobacco Use Status *Q: Never Tobacco User - Caffeine Use Caffeine Use: Reports: None - Alcohol Use Alcohol Use History: Yes Alcohol Use Frequency: Socially - Living Situation & Occupation Living situation: Reports: Occupation: Retired Social History Comment: Usually [facility] in [facility] ED ROS ENT - Review of Systems Review Of Systems: See Below Constitutional: Denies: Fever, Chills, Malaise, Weakness HEENT: Reports: Nosebleed. Denies: Nose Pain Respiratory: Reports: Cough (Chronic cough). Denies: Shortness of Breath, Hemoptysis Cardiovascular: Denies: Chest Pain, Palpitations GI/Abdominal: Denies: Abdominal Pain, Nausea, Vomiting : Denies: Dysuria, Frequency, Hematuria Musculoskeletal: Denies: Neck Pain, Back Pain Skin: Denies: Diaphoresis, Rash Neurological: Denies: Dizziness, Headache Hematologic/Lymphatic: Reports: Easy Bleeding, Easy Bruising, Other (Chronically anticoagulated on Coumadin.) ED EXAM, ENT - Physical Exam Exam: See Below Exam Limited By: No Limitations General Appearance: Alert, WD/WN, Mild Distress, Other (But in no respiratory distress and nontoxic-appearing) Eye Exam: Bilateral Eye: EOMI, Normal Inspection (Sclera are anicteric) Ears: Normal External Exam, Hearing Grossly Normal Nose: Active Bleeding (Mild but continual oozing/bleeding. It does stop with direct pressure to the anterior nose.), Dried Blood Mouth/Throat: Normal Inspection, Normal Lips Head: Atraumatic, Normocephalic Neck: Normal Inspection, Supple, Non-Tender, Full Range of Motion Respiratory/Chest: No Respiratory Distress, Lungs Clear, Normal Breath Sounds, No Accessory Muscle Use, Chest Non-Tender Cardiovascular: Normal Peripheral Pulses, Regular Rate, Rhythm. No: No Murmur GI/Abdominal: Normal Bowel Sounds, Soft, Non-Tender Back: Normal Inspection, Full Range of Motion Extremities: Normal Inspection, Normal Range of Motion, Non-Tender, No Pedal Edema Neurological: Alert, Oriented, CN II-XII Intact, Normal Cognition, No Motor/Sensory Deficits Psychiatric: Normal Affect Skin: Warm, Dry, Intact, Normal Color, No Rash ED ENT PROCEDURES - Epistaxis Procedure Indication: Epistaxis, Uncontrolled (Uncontrolled initially but controlled with anterior pack placement.) Recent anticoagulants/antiplatlets: Yes Uncontrolled HTN: No Recent septal/nasal surgery: No Site of bleeding: Left Nare Clearing of clots: Patient Blew Nose Topical Meds: Other (Afrin easels pray.) Ice pack to area: No Anterior Packing: Other (5.5 cm Rhino Rocket. 5.5 mL of air instilled into the balloon.) Complications: No (The patient did have no bleeding after the initial Afrin nasal spray and the nasal clamp had been placed. However, when she sat up and moved around, the bleeding began again. Therefore that prompted me to place the 5.5 cm anterior Rhino Rocket pack. The patient tolerated this well. No apparent compl) Course - Vital Signs Last Recorded V/S: Last Vital Signs Temp 36.3 C 06/06/21 22:58 Pulse 86 06/06/21 22:58 Resp 18 06/06/21 22:58 BP 160/87 H 06/06/21 22:58 Pulse Ox 97 06/06/21 22:58 - Orders/Labs/Meds Labs: Laboratory Tests 06/06/21 06/06/21 06/06/21 Range/Units 19:49 19:49 19:49 WBC 3.6 (3.0-10.3) x10-3/uL RBC 3.58 L (3.60-5.20) x10(6)uL Hgb 11.0 L (11.4-15.5) g/dL Hct 33.8 L (34.2-48.2) % MCV 94.2 (76.7-100.5) fL MCH 30.7 (23.9-33.9) pg MCHC 32.6 (31.9-34.8) g/dL RDW 16.4 (12.3-16.5) % Plt Count 136 L (151-488) x10(3)uL MPV 7.1 (7.1-12.4) fL Neut % (Auto) 52.1 (30.8-76.2) % Lymph % (Auto) 33.2 (18.4-52.1) % [place] % (Auto) 11.2 (4.4-15.7) % Eos % (Auto) 2.6 (0.6-8.1) % Baso % (Auto) 0.9 (0.2-1.5) % Neut # (Auto) 1.9 (1.5-6.3) x10-3/uL Lymph # (Auto) 1.2 (1.0-4.4) x10-3/uL [place] # (Auto) 0.4 (0.3-1.0) x10-3/uL Eos # (Auto) 0.1 (0.0-0.8) x10-3/uL Baso # (Auto) 0.0 (0.0-0.1) x10-3/uL PT 18.4 H (9.0-11.1) sec INR 1.76 H (1.00-1.24) Sodium 144 (135-145) mmol/L Potassium 3.5 (3.5-5.3) mmol/L Chloride 104 D (100-110) mmol/L Carbon Dioxide 34 H (21-32) mmol/L BUN 24 H (7-18) mg/dL Creatinine 1.1 H (0.55-1.02) mg/dL Est Cr Clr Drug Dosing TNP Estimated GFR (MDRD) 48 L (>60) BUN/Creatinine Ratio 21.8 H (9-20) Glucose 108 (80-116) mg/dL Calcium 9.4 (8.6-10.2) mg/dL Magnesium 2.2 (1.8-2.5) mg/dL Total Bilirubin 0.9 (0.1-1.3) mg/dL AST 24 (5-25) IU/L ALT 22 D (12-36) U/L Alkaline Phosphatase 45 L (56-112) IU/L Total Protein 7.1 (6.0-8.0) g/dL Albumin 3.4 (3.2-4.6) g/dL Globulin 3.7 g/dL Albumin/Globulin Ratio 0.9 Meds: Medications Discontinued Medications Generic Name Dose Route Start Last Admin Trade Name [place] PRN Reason Stop Dose Admin Oxymetazoline HCl 1 ml 06/06/21 19:32 06/06/21 20:15 Oxymetazoline 0.05% Nasal [place] 30 Ml Bottle WINIFRED 06/06/21 19:33 1 ml ONETIME ONE Administration - Re-Assessments/Exams Free Text/Narrative Re-Assessment/Exam: 06/06/21 21:05: 1. Wound and 3.6. Hemoglobin is 11.0. This is in keeping with previous checks. The platelet count is 136K. this is in keeping with checks in the past as well. The sodium is 144. The potassium is 3.5. Bicarbonate is 34. BUN and creatinine are 24 and 1.1 respectively. Glucose is 108. LFTs are normal. INR is 1.76. The patient's bleeding has stopped with the nasal clamp. I have applied Afrin spray to the right nostril and replaced the clamp. She is not having any anterior bleeding and there is no posterior pharyngeal bleeding. I will leave this in place for about 30 minutes and then reassess the patient. 06/06/21 21:40: Patient is status post anterior Rhino Rocket placement. She has been observed for about 30 minutes. We were able to ambulate her in the araya and no further bleeding. She is stable for discharge at this point. She has remained hemodynamically stable. Her blood tests are all reassuring. She is to rest. She is to have no strenuous activity for the next 2-3 days. She is to keep her head elevated. She is to follow-up at [facility] in [place] on Saturday for recheck and probable nasal packing removal. She is to continue her medications as present. She should call the clinic in the morning to try to arrange everything for Saturday. Departure - Departure Time of Disposition: 21:45 Disposition: Home, Self-Care 01 Condition: Good Clinical Impression: Right-sided epistaxis - Discharge Information Instructions: Nosebleed, Adult, [id number] Referrals: Vineet Luevano MD [Primary Care Provider] - Forms: ED Department Discharge Additional Instructions: Leave the packing in your nose in place. Rest. Keep your head elevated as much as possible. Avoid any activity at home which would include cleaning, cooking or prolonged walking. Follow-up at the [facility] in [place] on this 06/09/2021 for recheck with probable nasal packing removal. You should try to get your Covid booster changed to be given on that day as well. I want you to try to stay at home and rest over the next 3 days. Back to the emergency department for recurrent nosebleed, fever, severe weakness or any other concerning signs or symptoms. Sepsis Event Note (ED) - Focused Exam Vital Signs: Vital Signs Temp Pulse Resp BP Pulse Ox 06/06/21 22:58 36.3 C 86 18 160/87 H 97 06/06/21 21:00 36.3 C 84 18 98 06/06/21 19:25 36.2 C 86 18 158/86 H 97
[2021-06-06] MEDS ORDERED: Oxymetazoline 0.05% Nasal Spray 30 ML Bottle NAS ONE (19:32)
[2021-06-06 21:00] VITALS: BP 160/87; PULSE 86
== END 2021-06-06 22:55 | disposition home or self-care (01) ==
LOC: FB.ED 19:23
DX: R04.0 Epistaxis (principal); I11.0 Hypertensive heart disease with heart failure; I50.9 Heart failure, unspecified; I48.91 Unspecified atrial fibrillation; E78.00 Pure hypercholesterolemia, unspecified; K21.9 Gastro-esophageal reflux disease without esophagitis; M10.9 Gout, unspecified; Z88.5 Allergy status to narcotic agent; Z79.01 Long term (current) use of anticoagulants; Z79.899 Other long term (current) drug therapy
CPT/HCPCS: 30903; 36415; 80053; 83735; 85025; 85610; 99283-25; A9270-GY

== ENCOUNTER 2023-01-05 11:30 | Emergency (ER) | payer MEDICARE, BC ==
[2023-01-05 12:32] VITALS: BP 171/86; PULSE 82
[2023-01-05 12:42] LABS: BASOPHILS PERCENT AUTO 0.3 % (0.2-1.5); EOSINOPHILS ABSOLUTE AUTO 0.2 x10-3/uL (0.0-0.8); EOSINOPHILS PERCENT AUTO 3.5 % (0.6-8.1); HEMATOCRIT 33.7 % (34.2-48.2); HEMOGLOBIN 11.3 g/dL (11.4-15.5); LYMPHOCYTES ABSOLUTE AUTO 0.8 x10-3/uL (1.0-4.4); LYMPHOCYTES PERCENT AUTO 11.9 % (18.4-52.1); MEAN CORPUSCULAR HEMOGLOBIN 30.4 pg (23.9-33.9); MEAN CORPUSCULAR HGB CONC 33.4 g/dL (31.9-34.8); MEAN CORPUSCULAR VOLUME 91.1 fL (76.7-100.5); MEAN PLATELET VOLUME 7.2 fL (7.1-12.4); MONOCYTES ABSOLUTE AUTO 0.6 x10-3/uL (0.3-1.0); MONOCYTES PERCENT AUTO 9.1 % (4.4-15.7); NEUTROPHILS ABSOLUTE AUTO 5.3 x10-3/uL (1.5-6.3); NEUTROPHILS PERCENT AUTO 75.2 % (30.8-76.2); PLATELET COUNT,PLT 230 x10(3)uL (151-488); RED CELL DISTRIBUTION WIDTH 14.5 % (12.3-16.5); WHITE BLOOD CELL COUNT,WBC 7.1 x10-3/uL (3.0-10.3)
[2023-01-05 12:44] LABS: BLOOD UREA NITROGEN,BUN 19 mg/dL (7-18); CALCIUM 9.3 mg/dL (8.6-10.2); CARBON DIOXIDE,CO2 34 mmol/L (21-32); CHLORIDE,CL 99 mmol/L (100-110); ESTIMATED GFR 57 mL/min (>60); GLUCOSE RANDOM 95 mg/dL (80-116); POTASSIUM,K 3.9 mmol/L (3.5-5.3); SODIUM,NA 139 mmol/L (135-145)
[2023-01-05 12:44] LABS: BILIRUBIN,URINE NEGATIVE (NEGATIVE); GLUCOSE,URINE NORMAL (NORMAL); KETONES,URINE NEGATIVE (NEGATIVE); LEUKOCYTE ESTERASE,URINE NEGATIVE (NEGATIVE); NITRITE,URINE NEGATIVE (NEGATIVE); OCCULT BLOOD,URINE NEGATIVE (NEGATIVE); PROTEIN,URINE NEGATIVE (NEGATIVE); UROBILINOGEN,URINE NORMAL (NEGATIVE)
[2023-01-05 12:49] LABS: A/G RATIO 0.8; ALANINE AMINOTRANSFERASE,ALT 23 U/L (12-36); ALKALINE PHOSPHATASE 95 IU/L (56-112); ASPARTATE AMNIOTRANSFERASE,AST 30 IU/L (5-25); BILIRUBIN TOTAL 1.4 mg/dL (0.1-1.3); PROTEIN TOTAL,TP 6.7 g/dL (6.0-8.0)
[2023-01-05 12:51] LABS: APPEARANCE,URINE CLEAR (CLEAR); BACTERIA,URINE FEW (NS); COLOR,URINE YELLOW (YELLOW); SQUAMOUS EPITHELIAL CELLS,UR OCCASIONAL (NS,R,O)
[2023-01-05 12:54] LABS: C-REACTIVE PROTEIN 8.2 mg/dL (0.5-0.9)
[2023-01-05] MEDS ORDERED: Iopamidol 755 Mg/ML 100 ML Bottle IV ONE (14:56)
[2023-01-05] MEDS ORDERED: Sodium Chloride 0.9% 10 ML Syringe FLUSH PRN (15:01)
[2023-01-05] MEDS ORDERED: Sodium Chloride 0.9% 500 ML IV ONE (15:52)
== END 2023-01-05 17:01 | disposition home or self-care (01) ==
LOC: FB.ED 11:30
DX: R55 Syncope and collapse (principal); J90 Pleural effusion, not elsewhere classified; I11.0 Hypertensive heart disease with heart failure; I50.9 Heart failure, unspecified; I48.91 Unspecified atrial fibrillation; E78.00 Pure hypercholesterolemia, unspecified; K21.9 Gastro-esophageal reflux disease without esophagitis; Z95.0 Presence of cardiac pacemaker; Z79.01 Long term (current) use of anticoagulants
CPT/HCPCS: 36415; 70450; 71045; 71275; 80053; 81001; 83735; 84484; 85025; 85379; 86140; 93005; 96360; 99284-25; J7040; Q9967

== ENCOUNTER 2023-01-29 11:22 | Emergency (ER) | payer MEDICARE, BC ==
[2023-01-29] MEDS ORDERED: Sodium Chloride 0.9% 10 ML Syringe FLUSH PRN (11:59)
[2023-01-29 12:36] LABS: BASE EXCESS VENOUS,POC 5 mmol/L (-2 - 3+); PCO2 VENOUS,POC 41 mmHg (41-51); PH VENOUS,POC 7.46 pH Units (7.32-7.43)
[2023-01-29 12:40] LABS: BASOPHILS PERCENT AUTO 0.1 % (0.2-1.5); EOSINOPHILS PERCENT AUTO 0.1 % (0.6-8.1); LYMPHOCYTES ABSOLUTE AUTO 0.5 x10-3/uL (1.0-4.4); LYMPHOCYTES PERCENT AUTO 4.7 % (18.4-52.1); MEAN CORPUSCULAR HEMOGLOBIN 29.6 pg (23.9-33.9); MEAN CORPUSCULAR HGB CONC 33.3 g/dL (31.9-34.8); MEAN PLATELET VOLUME 7.1 fL (7.1-12.4); MONOCYTES ABSOLUTE AUTO 0.5 x10-3/uL (0.3-1.0); NEUTROPHILS ABSOLUTE AUTO 9.6 x10-3/uL (1.5-6.3); NEUTROPHILS PERCENT AUTO 90.1 % (30.8-76.2); PLATELET COUNT,PLT 184 x10(3)uL (151-488); RED CELL DISTRIBUTION WIDTH 14.9 % (12.3-16.5); WHITE BLOOD CELL COUNT,WBC 10.6 x10-3/uL (3.0-10.3)
[2023-01-29 12:46] LABS: BLOOD UREA NITROGEN,BUN 22 mg/dL (7-18); BUN/CREATININE RATIO 24.4 (9-20); CALCIUM 9.6 mg/dL (8.6-10.2); CARBON DIOXIDE,CO2 30 mmol/L (21-32); CHLORIDE,CL 99 mmol/L (100-110); CREATININE 0.9 mg/dL (0.55-1.02); EST CRCL DRUG DOSING (CG) 42.33 mL/min; ESTIMATED GFR 64 mL/min (>60); GLUCOSE RANDOM 107 mg/dL (80-116); INR 1.09 (1.00-1.24); POTASSIUM,K 3.4 mmol/L (3.5-5.3); PROTHROMBIN TIME 11.2 sec (9.0-11.1); SODIUM,NA 138 mmol/L (135-145)
[2023-01-29 12:57] LABS: TROPONIN I 33.5 pg/mL (4.0-60.3)
[2023-01-29 12:58] LABS: A/G RATIO 0.8; ALANINE AMINOTRANSFERASE,ALT 19 U/L (12-36); ALKALINE PHOSPHATASE 80 IU/L (56-112); ASPARTATE AMNIOTRANSFERASE,AST 25 IU/L (5-25); BILIRUBIN TOTAL 1.1 mg/dL (0.1-1.3); MAGNESIUM 1.9 mg/dL (1.8-2.5)
[2023-01-29 13:43] LABS: INFLUENZA A NAA NEGATIVE (NEGATIVE); INFLUENZA B NAA NEGATIVE (NEGATIVE)
[2023-01-29 13:46] LABS: CORONAVIRUS COVID-19 NAA NEGATIVE (NEGATIVE)
[2023-01-29 19:48] VITALS: BP 128/64; PULSE 70
== END 2023-01-29 16:40 ==
LOC: FB.ED 11:22
DX: R40.4 Transient alteration of awareness (principal); J90 Pleural effusion, not elsewhere classified; R50.9 Fever, unspecified; I11.0 Hypertensive heart disease with heart failure; I50.9 Heart failure, unspecified; I48.91 Unspecified atrial fibrillation; K21.9 Gastro-esophageal reflux disease without esophagitis; M10.9 Gout, unspecified; Z95.0 Presence of cardiac pacemaker; Z88.5 Allergy status to narcotic agent; Z79.899 Other long term (current) drug therapy; Z86.73 Personal history of transient ischemic attack (TIA), and cerebral infarction without residual deficits; Z20.822 Contact with and (suspected) exposure to COVID-19
CPT/HCPCS: 0240U; 36415; 70450; 71045; 80053; 83605; 83735; 83880; 84484; 85025; 85610; 86140; 87040; 93005; 99285

== ENCOUNTER 2024-05-26 14:44 | Emergency (ER) | payer MEDICARE, BC ==
[2024-05-26 15:36] LABS: BASOPHILS PERCENT AUTO 0.3 % (0.2-1.5); EOSINOPHILS ABSOLUTE AUTO 0.1 x10-3/uL (0.0-0.8); EOSINOPHILS PERCENT AUTO 2.5 % (0.6-8.1); HEMATOCRIT 27.7 % (34.2-48.2); HEMOGLOBIN 9.4 g/dL (11.4-15.5); LYMPHOCYTES PERCENT AUTO 16.6 % (18.4-52.1); MEAN CORPUSCULAR HEMOGLOBIN 31.5 pg (23.9-33.9); MEAN CORPUSCULAR HGB CONC 33.9 g/dL (31.9-34.8); MEAN PLATELET VOLUME 6.6 fL (7.1-12.4); MONOCYTES ABSOLUTE AUTO 0.7 x10-3/uL (0.3-1.0); MONOCYTES PERCENT AUTO 11.6 % (4.4-15.7); PLATELET COUNT,PLT 138 x10(3)uL (151-488); RED BLOOD CELL COUNT 2.98 x10(6)uL (3.60-5.20); RED CELL DISTRIBUTION WIDTH 14.1 % (12.3-16.5); WHITE BLOOD CELL COUNT,WBC 5.8 x10-3/uL (3.0-10.3)
[2024-05-26 15:41] LABS: BLOOD UREA NITROGEN,BUN 18 mg/dL (7-18); BUN/CREATININE RATIO 16.4 (9-20); CALCIUM 8.8 mg/dL (8.6-10.2); CARBON DIOXIDE,CO2 31 mmol/L (21-32); CHLORIDE,CL 104 mmol/L (100-110); CREATININE 1.1 mg/dL (0.55-1.02); EST CRCL DRUG DOSING (CG) 34.05 mL/min; ESTIMATED GFR 50 mL/min (>60); GLUCOSE RANDOM 98 mg/dL (80-116); POTASSIUM,K 4.2 mmol/L (3.5-5.3); SODIUM,NA 141 mmol/L (135-145)
[2024-05-26 15:48] LABS: TROPONIN I 13.3 pg/mL (4.0-60.3)
[2024-05-26 15:49] LABS: C-REACTIVE PROTEIN 2.88 mg/dL (<0.50)
[2024-05-26 15:52] LABS: ALANINE AMINOTRANSFERASE,ALT 20 U/L (12-36); ALBUMIN 3.3 g/dL (3.2-4.6); ALKALINE PHOSPHATASE 37 IU/L (56-112); ASPARTATE AMNIOTRANSFERASE,AST 25 IU/L (5-25); BILIRUBIN TOTAL 1.4 mg/dL (0.1-1.3); PROTEIN TOTAL,TP 6.6 g/dL (6.0-8.0)
[2024-05-26 16:47] LABS: BILIRUBIN,URINE NEGATIVE (NEGATIVE); GLUCOSE,URINE NORMAL (NORMAL); KETONES,URINE NEGATIVE (NEGATIVE); LEUKOCYTE ESTERASE,URINE MODERATE (NEGATIVE); NITRITE,URINE NEGATIVE (NEGATIVE); OCCULT BLOOD,URINE NEGATIVE (NEGATIVE); PROTEIN,URINE NEGATIVE (NEGATIVE); UROBILINOGEN,URINE NORMAL (NEGATIVE)
[2024-05-26 16:50] LABS: APPEARANCE,URINE CLEAR (CLEAR); BACTERIA,URINE MODERATE (NS); COLOR,URINE YELLOW (YELLOW); RBC,URINE 0-5 (0-5); SQUAMOUS EPITHELIAL CELLS,UR FEW (NS,R,O)
[2024-05-26 17:23] VITALS: PULSE 70
[2024-05-26 18:52] VITALS: BP 146/78
== END 2024-05-26 17:59 | disposition home or self-care (01) ==
LOC: FB.ED 14:44
DX: R40.4 Transient alteration of awareness (principal); J32.0 Chronic maxillary sinusitis; I11.0 Hypertensive heart disease with heart failure; I50.9 Heart failure, unspecified; E78.00 Pure hypercholesterolemia, unspecified; Z79.899 Other long term (current) drug therapy; Z79.82 Long term (current) use of aspirin; Z79.51 Long term (current) use of inhaled steroids; Z88.5 Allergy status to narcotic agent
CPT/HCPCS: 36415; 70450; 80053; 81001; 83605; 84484; 85025; 86140; 87086; 87088; 87186; 93005; 99285

== ENCOUNTER 2024-10-12 17:32 | Emergency (ER) | payer MEDICARE, BC ==
[2024-10-12 19:13] VITALS: BP 177/84; PULSE 72
== END 2024-10-12 18:13 | disposition home or self-care (01) ==
LOC: FB.ED 17:32
DX: Z95.0 Presence of cardiac pacemaker (principal); I11.0 Hypertensive heart disease with heart failure; I50.9 Heart failure, unspecified; K21.9 Gastro-esophageal reflux disease without esophagitis; I48.91 Unspecified atrial fibrillation; E78.00 Pure hypercholesterolemia, unspecified; Z88.5 Allergy status to narcotic agent; Z79.899 Other long term (current) drug therapy; Z79.82 Long term (current) use of aspirin; Z86.73 Personal history of transient ischemic attack (TIA), and cerebral infarction without residual deficits
CPT/HCPCS: 93005; 99284